=== PATIENT | female | born 1940 | race Caucasian/White ===

== ENCOUNTER 2017-10-13 15:58 | Inpatient (IN) ==
[2017-10-13] MEDS ORDERED: NS 1,000 ML IV ONE ×2 (16:08→18:48)
--- OUTSIDE RECORDS SUMMARY | 2017-10-13 16:18 | External Medical Summary ---
:1940 Author Organization [facility] Address [address] [place] [address] Care Team Providers Name Role Phone Pippa Rojo Unavailable Unavailable PROBLEMS Type Condition ICD9-CM [id number] Onset Condition SNOMED Code Code Code Dates Status Problem CVA (cerebral I63.9 Active 769729417 vascular accident) Problem Anemia D64.9 Active 716145030 Problem Mixed hyperlipidemia E78.2 Active 779141718 Problem CKD (chronic kidney N18.9 Active 713910374 disease) Problem Chronic Z79.01 Active 882370008 anticoagulation Problem AAA (abdominal I71.4 Active 662038175 aortic aneurysm) Problem HTN (hypertension) I10 Active 93687498 Problem Dyslipidemia E78.5 Active [id number] ALLERGIES Substance Reaction Event Type Date Status Tetracycline HCl Unknown Drug Allergy July, Active ENCOUNTERS Encounter Location Date Diagnosis [address] July, AAA (abdominal aortic Cardiology[address] aneurysm) I71.4 ; CVA [address] (cerebral vascular accident) I63.9 ; HTN (hypertension) I10 ; Chronic anticoagulation Z79.01 ; Anemia D64.9 ; Mixed hyperlipidemia E78.2 ; Current tobacco use Z72.0 and CKD (chronic kidney disease) N18.[address] July, AAA (abdominal aortic Cardiology[address] aneurysm) I71.4 ; CVA [address] (cerebral vascular accident) I63.9 ; HTN (hypertension) I10 ; Dyslipidemia E78.5 ; Chronic anticoagulation Z79.01 ; Anemia D64.9 and Tobacco abuse Z72.[address] July, AAA (abdominal aortic Cardiology[address] aneurysm) I71.4 ; CVA [address] (cerebral vascular accident) I63.9 ; HTN (hypertension) I10 ; Dyslipidemia E78.5 ; Chronic anticoagulation Z79.01 ; Anemia D64.9 and Tobacco abuse Z72.0 [facility] [address] [facility] 02 Jul, 2016 AAA (abdominal aortic Cardiology-[address] aneurysm) I71.4 ; CVA [address] (cerebral vascular accident) I63.9 ; HTN (hypertension) I10 ; Dyslipidemia E78.5 ; Chronic anticoagulation Z79.01 ; Anemia D64.9 and Tobacco abuse Z72.0 IMMUNIZATIONS No Known Immunizations SOCIAL HISTORY Never Assessed REASON FOR VISIT ^S ECHO AAA FU 1 WK PLAN OF CARE Activity Details Follow Up 6 Months withAAAA ultrasound Reason: VITAL SIGNS Height 60 in in 2016-08-11 Weight 121 lbs 2016-08-11 BMI 23.63 kg/m2 2016-08-11 Oximetry 97 % 2016-08-11 Heart Rate 51 /min 2016-08-11 Blood pressure systolic 152 mm Hg 2016-08-11 Blood pressure diastolic 80 mm Hg 2016-08-11 MEDICATIONS Medication Instructions Dosage Frequency Start End Duration Status Date Date Vitamin D3 Adult Orally Once a 1 tablet 24h Active Gummies 1000 day UNIT Probiotic - Active Loratadine 10 MG Orally Once a 1 tablet 24h Active day Calcitriol 0.25 Orally every 1 capsule Active MCG Sunday, & Sunday Folic Acid 1 MG Orally Once a 1 tablet 24h Active day Amlodipine Orally Once a 1 tablet 24h Active Besylate 10 MG day Rosuvastatin Orally Once a 1 tablet 24h Active Calcium 20 MG day Ferrous Sulfate Orally Once a 1 tablet 24h Active 325 (65 Fe) MG day Warfarin Sodium Orally Once a 2 tablet 24h Active 1 MG day Metoprolol Orally Twice a 1 tablet 12h Active Tartrate 25 MG day with food Citalopram Orally Once a 0.5 tablet 24h Active Hydrobromide 40 day MG RESULTS No Results PROCEDURES No Known procedures INSTRUCTIONS MEDICATIONS ADMINISTERED No Known Medications MEDICAL (GENERAL) HISTORY Type Description Date Medical History AAA Medical History Hyperlipidemia Medical History CVA august 2014 Medical History HTN Surgical History Breast biopsy
--- NOTE | 2017-10-13 17:53 | Emergency Department Report ---
General Adult HPI - General Chief complaint: Medical Emergency <Francis Khoury - 10/13/17 20:40> Stated complaint: not feeling well <Francis Khoury - 10/13/17 20:40> Time Seen by Provider: 10/13/17 16:08 <Francis Khoury - 10/13/17 20:40> - History of Present Illness HPI narrative: 77-year-old female brought in for failure to thrive, decreased by mouth intake and generalized weakness. Her only interest is any eating [employer], and refuses to eat or drink anything else. She's had some mild nausea, no vomiting. She originally fell about 2 weeks ago and then fell again within the last few days, tripping over an end table by her bed. Her son is concerned that she has not been willing to walk the last few days due to weakness. She received an aortic stent within the last month. No recent fever or chills, no other recent illness. She is a history of atrial fibrillation and is currently on Coumadin. <Booker Portre E - 10/13/17 18:05> - Related Data Home Medications Medication Instructions Recorded Confirmed Amlodipine [Norvasc] 5 mg PO DAILY 10/13/17 10/13/17 Calcitriol [Rocaltrol] 0.25 mcg PO TUTHSA 10/13/17 10/13/17 Cholecalciferol (Vitamin D3) 5,000 unit PO DAILY 10/13/17 10/13/17 [Vitamin D3] Citalopram [Celexa] 40 mg PO DAILY 10/13/17 10/13/17 Clopidogrel [Plavix] 75 mg PO DAILY 10/13/17 10/13/17 Folic Acid [Folate] 1 mg PO DAILY 10/13/17 10/13/17 LORazepam [Ativan] 0.5 mg PO Q8H PRN 10/13/17 10/13/17 Lactobacillus Acidophilus 1 cap PO PM 10/13/17 10/13/17 [Probiotic] Metoprolol Tartrate [Lopressor] 25 mg PO BIDWM 10/13/17 10/13/17 Rosuvastatin [Crestor] 20 mg PO HS 10/13/17 10/13/17 Sodium Bicarbonate [Sodium 650 mg PO BID 07/21/18 07/21/18 Bicarbonate] Spironolactone [Aldactone] 25 mg PO DAILY 10/13/17 10/13/17 Tiotropium Br/Olodaterol HCl 2 puff INH DAILY 10/13/17 10/13/17 [Stiolto Respimat Inhal [place]] Warfarin [Coumadin] 1 mg PO TUSA 10/13/17 10/13/17 Warfarin [Coumadin] 1.5 mg PO SUMOWETHFR 10/13/17 10/13/17 <Francis Khoury - 10/13/17 20:40> Allergies Allergy/AdvReac Type Severity Reaction Status Date / Time tetracycline Allergy Intermediate HIVES Verified 10/13/17 16:17 atorvastatin Allergy Unknown leg cramps Verified 10/13/17 16:17 <Francis Khoury 10/13/17 20:40> Review of Systems All systems: reviewed and negative except as stated <Booker Porter 18:05> [facility] Patient Stated Medical History Cerebrovascular Accident Yes: 2014 Cardiac Arrhythmia Yes Hypertension Yes Other Yes: LEFT KIDNEY BLOCKED Depression Yes Clinic Medical History (Last Reviewed 10/13/17 @ 18:58 by ENRICO Hernandez) Anemia (Acute Medical) Lichen sclerosus et atrophicus (Acute Medical) Urinary incontinence (Acute Medical) Tobacco abuse (Chronic Medical) Aortic aneurysm (Chronic Medical) Chronic kidney disease (Chronic Medical) Stroke (Chronic Medical) Depression (Chronic Medical) GERD (gastroesophageal reflux disease) (Chronic Medical) Hypercholesterolemia (Chronic Medical) Hypertension (Chronic Medical) Atrial fibrillation (Chronic Medical) <Francis Khoury 10/13/17 20:40> Surgical History: Rt Breast biopsy - negative. Bladder sling. Presence of dialysis fistula in left forearm. Colonoscopy, 2009. Rt carpal tunnel. Rt trigger thumb release <Booker Porter 10/13/17 18:05> Family History: Family History (Last Updated 10/13/17 @ 18:54 by ENRICO Hernandez) Mother CHF (congestive heart failure) Heart attack Stroke Father Diverticulitis Suicide Sister Ovarian cancer Heart attack Stroke <Francis Khoury 10/13/17 20:40> - Social History Smoking status: Current every day smoker <Booker Porter 10/13/17 18:05> Substance use type: does not use <Booker Porter 18 18:05> Alcohol intake frequency: holidays/special occasions only <Booker Porter 18:05> Household members: spouse <Booker Porter 10/13/17 18:05> Current occupational status: retired <Booker Porter 10/13/17 18:05> Physical Exam - Limitations Limitations: no limitations <Booker Porter 10/13/17 18:05> - General General appearance: alert <Booker Porter 10/13/17 18:05> - Normal Exams: Neurological:: Patient is alert, and oriented, cranial nerves, motor/sensory/ cerebellar, exams w/o gross deficits, to observation <Booker Porter 18:05> - Head Head exam: other (bruising noted right side of face.) <Booker Porter 18:05> - Eye Eye exam: Present: PERRL, EOMI <Booker Porter 10/13/17 18:05> - Respiratory Respiratory exam: Present: normal lung sounds bilaterally. Absent: respiratory distress <Booker Porter 10/13/17 18:05> - Cardiovascular Cardiovascular exam: Present: regular rate, irregular rhythm <Booker Porter 10/13/17 18:05> - Abdominal Exam Abdominal exam: Present: soft, normal bowel sounds. Absent: distention, tenderness, guarding, rebound, rigidity <Booker Porter 10/13/17 18:05> - Rectal Exam Rectal exam: Present: normal rectal tone, heme (-) stool <Booker Porter 18:05> - Extremities Exam Extremities exam: Present: other (bruising lower thoracic back as well as right hip and buttock) <Booker Porter 10/13/17 18:05> Course Vital Signs Temperature 98.6 F 10/13/17 15:53 Pulse Rate 108 H 10/13/17 15:53 Respiratory Rate 20 10/13/17 15:53 Blood Pressure 108/65 10/13/17 15:53 Pulse Oximetry 98 10/13/17 15:53 Temperature 98.6 F 10/13/17 15:53 Pulse Rate 118 H 10/13/17 19:23 Respiratory Rate 18 10/13/17 19:23 Blood Pressure 110/57 10/13/17 19:23 Pulse Oximetry 99 10/13/17 19:23 <IraidaFrancis - 10/13/17 20:40> Medical Decision Making - [facility] Narrative Medical decision making narrative: Patient continues to be tachycardic in the low 100s after 1 L normal saline. She is in atrial fibrillation, but seems to be responding to IV fluids. Blood pressure is low normal, therefore we will continue one additional bolus of IV fluids. Initial EKG shows atrial fibrillation with a normal ventricular rate in the 90s , patient does have [address] depression in V3 through V6, with mild inversion of T waves. This appears to be changed from prior EKGs 2-3 months ago. Troponin is added to the patient's orders INR came back after recheck still greater than 10. Patient's urine shows obvious UTI. After discussion with hospitalist team, patient is given 5 mg of vitamin K liquid orally, and Rocephin [address] head - n CT A/P - shows abdominal aortic stent observed, patency cannot be evaluated secondary to lack of contrast. No definitive evidence of any large acute hemorrhage surrounding the stent, induration measures approximately 5.8 cm. No other significant abnormalities are found. Troponin - negative <Francis Khoury - 10/13/17 20:40> Peripheral IV placed on initial evaluation and total of 1 L normal saline ordered. Labs and EKG ordered. INR was added. She was placed on telemetry. Chest x-ray return negative. CBC shows hemoglobin of 6.8, CMP shows creatinine 2.6 with BUN of greater than 50. Potassium is 5.0. Telemetry shows atrial fibrillation, EKG is pending. UA is still pending as well. Spoke with hospitalist in regards to significant dehydration as well as anemia as cause to her weakness. Patient be admitted observation for packed RBC transfusion. <Booker Porter - 10/13/17 18:05> - Differential Diagnosis dehydration, UTI, anemia, failure to thrive <Booker Porter - 10/13/17 18:05> - Medical Records Medical records reviewed: Yes: I reviewed the patient's medical records. <Booker Porter - 10/13/17 18:05> - Lab Data Result diagrams: 10/13/17 16:38 10/13/17 16:38 <KhouryFrancis doe H - 10/13/17 20:40> Lab Results 10/13/17 10/13/17 10/13/17 Range/Units 16:36 16:36 16:38 WBC 7.8 (4.5-11.0) T/MM3 RBC 1.73 L (4.00-5.20) M/MM3 Hgb 6.3 L (12-16) GM/DL Hct 19.5 L (36-46) % MCV 112.7 H (80-100) UM3 MCH 36.4 H (26-34) UUG MCHC 32.3 (31-37) GM/DL RDW Std Deviation 75.2 H (36.9-50.2) FL Plt Count 257 (130-400) T/MM3 MPV 9.7 (9.4-12.4) UM3 Immature Gran % (Auto) 0.4 (0.0-0.5) % Neut % (Auto) 74.0 H (33-66) % Lymph % (Auto) 13.8 L (23-45) % [place] % (Auto) 10.2 H (0-9.0) % Eos % (Auto) 1.3 (0-4) % Baso % (Auto) 0.3 (0-2) % Neut # (Auto) 5.8 (1.8-7.7) T/MM3 Lymph # (Auto) 1.1 (1-4.8) T/MM3 [place] # (Auto) 0.8 (0-0.8) T/MM3 Eos # (Auto) 0.1 (0-0.5) T/MM3 Baso # (Auto) 0.0 (0-0.2) T/MM3 Abs Immat Gran (auto) 0.03 (0.00-0.03) T/MM3 INR > 10.00 H* (0.92-1.18) Turbidity (0-20) Sodium (136-146) MEQ/L Potassium (3.6-5) MEQ/L Chloride (98-107) MEQ/L Carbon Dioxide (22-30) MEQ/L Anion Gap (5-15) meq/L BUN (7-17) MG/DL Creatinine (0.7-1.2) mg/dL GFR Calculation BUN/Creatinine Ratio (6-26) RATIO Glucose (65-110) MG/DL Calculated Osmolality (261-280) MOSM/KG Calcium (8.4-10.2) MG/DL Total Bilirubin (0.20-1.30) MG/DL Icterus Index (0-7) AST (14-36) U/L ALT (1-35) U/L Alkaline Phosphatase (38-126) U/L Troponin I < 0.012 (0-0.12) ng/ml Total Protein (6.3-8.2) g/dL Albumin (3.5-5.0) g/dL Globulin (2.4-3.6) G/DL Albumin/Globulin Ratio (1.1-2.2) RATIO Specimen Hemolysis 20 (0-25) Ur Collection Type Urine Color (YELLOW) Urine Clarity Urine pH (5.0-8.0) Ur Specific [place] (1.015-1.025) Urine Protein (NEGATIVE) Urine Glucose (UA) (NEGATIVE) Urine Ketones (NEGATIVE) Urine Occult Blood (NEGATIVE) Urine Nitrate (NEGATIVE) Urine Bilirubin (NEGATIVE) Urine Urobilinogen (NORMAL) EU/DL Ur Leukocyte Esterase (NEGATIVE) Urine RBC (0-3) /HPF Urine WBC (0-5) /HPF Urine WBC Clumps Ur Squamous Epith Cells Urine Bacteria (NEGATIVE) Urine Mucus Ur Culture Indicated? 10/13/17 10/13/17 10/13/17 Range/Units 16:38 17:54 18:23 WBC (4.5-11.0) T/MM3 RBC (4.00-5.20) M/MM3 Hgb (12-16) GM/DL Hct (36-46) % MCV (80-100) UM3 MCH (26-34) UUG MCHC (31-37) GM/DL RDW Std Deviation (36.9-50.2) FL Plt Count (130-400) T/MM3 MPV (9.4-12.4) UM3 Immature Gran % (Auto) (0.0-0.5) % Neut % (Auto) (33-66) % Lymph % (Auto) (23-45) % [place] % (Auto) (0-9.0) % Eos % (Auto) (0-4) % Baso % (Auto) (0-2) % Neut # (Auto) (1.8-7.7) T/MM3 Lymph # (Auto) (1-4.8) T/MM3 [place] # (Auto) (0-0.8) T/MM3 Eos # (Auto) (0-0.5) T/MM3 Baso # (Auto) (0-0.2) T/MM3 Abs Immat Gran (auto) (0.00-0.03) T/MM3 INR > 10.00 H* (0.92-1.18) Turbidity < 20 (0-20) Sodium 135 L (136-146) MEQ/L Potassium 5.0 (3.6-5) MEQ/L Chloride 102 (98-107) MEQ/L Carbon Dioxide 20 L (22-30) MEQ/L Anion Gap 13 (5-15) meq/L BUN 58.0 H* (7-17) MG/DL Creatinine 2.6 H (0.7-1.2) mg/dL GFR Calculation 18 BUN/Creatinine Ratio 22 (6-26) RATIO Glucose 117 H (65-110) MG/DL Calculated Osmolality 277 (261-280) MOSM/KG Calcium 9.5 (8.4-10.2) MG/DL Total Bilirubin 0.60 (0.20-1.30) MG/DL Icterus Index < 2 (0-7) AST 25 (14-36) U/L ALT 10 (1-35) U/L Alkaline Phosphatase 55 (38-126) U/L Troponin I (0-0.12) ng/ml Total Protein 6.6 (6.3-8.2) g/dL Albumin 4.1 (3.5-5.0) g/dL Globulin 2.5 (2.4-3.6) G/DL Albumin/Globulin Ratio 1.6 (1.1-2.2) RATIO Specimen Hemolysis 24 (0-25) Ur Collection Type Urine, void-cc/notcc Urine Color Yellow (YELLOW) Urine Clarity Cloudy Urine pH 6.0 (5.0-8.0) Ur Specific [place] 1.010 L (1.015-1.025) Urine Protein Trace A (NEGATIVE) Urine Glucose (UA) Negative (NEGATIVE) Urine Ketones Negative (NEGATIVE) Urine Occult Blood 3+ A (NEGATIVE) Urine Nitrate Positive A (NEGATIVE) Urine Bilirubin Negative (NEGATIVE) Urine Urobilinogen 0.2 (NORMAL) EU/DL Ur Leukocyte Esterase 2+ A (NEGATIVE) Urine RBC 20-30 H (0-3) /HPF Urine WBC 30-50 H (0-5) /HPF Urine WBC Clumps Few Ur Squamous Epith Cells 5-10 Urine Bacteria 4+ H (NEGATIVE) Urine Mucus Present Ur Culture Indicated? Cult reflexed &setup <Francis Khoury 10/13/17 20:40> - Radiology Data Radiology results reviewed: Yes: I reviewed the patient's radiology results. < Booker Porter 10/13/17 18:05> Disposition Clinical Impression: Prothrombin time increased due to coumadin Anemia Qualifiers: Anemia type: unspecified type Qualified Code(s): D64.9 - Anemia, unspecified UTI (urinary tract infection) Qualifiers: Urinary tract infection type: acute cystitis Hematuria presence: without hematuria Qualified Code(s): N30.00 - Acute cystitis without hematuria <Francis Khoury 10/13/17 20:40> Disposition: 02 To [facility] Acute Care <Francis Khoury 10/13/17 20:40> Condition: Stable <Francis Khoury 10/13/17 20:40> Instructions: <Francis Khoury 10/13/17 20:40> Prescriptions: No Action Warfarin [Coumadin] 1.5 mg PO SUMOWETHFR Tiotropium Br/Olodaterol HCl [Stiolto Respimat Inhal [place]] 2 puff INH DAILY Spironolactone [Aldactone] 25 mg PO DAILY Sodium Bicarbonate [Sodium Bicarbonate] 650 mg PO BID Rosuvastatin [Crestor] 20 mg PO HS Lactobacillus Acidophilus [Probiotic] 1 cap PO PM Calcitriol [Rocaltrol] 0.25 mcg PO TUTHSA Metoprolol Tartrate [Lopressor] 25 mg PO BIDWM LORazepam [Ativan] 0.5 mg PO Q8H PRN PRN Reason: Anxiety Folic Acid [Folate] 1 mg PO DAILY Citalopram [Celexa] 40 mg PO DAILY Amlodipine [Norvasc] 5 mg PO DAILY Warfarin [Coumadin] 1 mg PO TUSA Cholecalciferol (Vitamin D3) [Vitamin D3] 5,000 unit PO DAILY Clopidogrel [Plavix] 75 mg PO DAILY <Francis Khoury - 10/13/17 20:40> Referrals: Hermes Kothari [Primary Care Provider] - <Francis Khoury - 20:40> Forms: <Francis Khoury - 10/13/17 20:40> - Seen By: physician <Francis Khoury 10/13/17 20:40>
[2017-10-13] MEDS ORDERED: PHYTONADIONE 5 MG/2.5 ML ORAL LIQUID PO ONE (18:45)
[2017-10-13] MEDS: SALINE FLUSH 10ml SYRINGE IVF PRN ×2 (18:53→22:41)
[2017-10-13] MEDS ORDERED: CEFTRIAXONE (ER USE ONLY) 1 GM in NS 100 ML IV ONE (18:53)
[2017-10-13] MEDS ORDERED: ONDANSETRON 4 MG/2 ML INJECTION IVP ONE (20:06)
--- NOTE | 2017-10-13 21:48 | History & Physical Report ---
History of Present Illness Date: 10/13/17 Chief complaint: weakness, falls HPI: Mrs. Rivas is a 77-year-old female who underwent endovascular repair of a 6 cm abdominal aortic aneurysm by Dr. Benedict Olmstead on September 27 that [facility]. She was able to ambulate at discharge using a walker but has had progressive decline since she's been home with increasing weakness and at least 2 and possibly 3 falls. Patient reports that she falls getting out of bed. First fall was approximately 2 weeks ago and she injured her left elbow; she fell again personally 2 days ago tripping over an end table by her bed resulting in extensive facial bruising. Oral intake has been poor per history of her son when she was in the emergency room and she has been unable to ambulate independently for at least a week. Patient describes dizziness/vertigo if she tries to sit forward and reports that she has been in bed for most of the past week. Patient denies focal neurological deficits and clearly indicates generalized weakness. She denies blood loss or abdominal pain although she has been nauseated without emesis. She's been constipated and is not aware of any rectal bleeding. In the emergency room she was found to have a hemoglobin of 6.3 , INR > 10, and persistent tachycardia after fluids. CTs of the head and abdomen /pelvis were without acute pathology. Patient is admitted now for management of symptomatic anemia and coagulopathy. Review of Systems All systems PM: 10-point ROS was reviewed, no additional remarkable complaints except (nausea without reflux or emesis; constipation, headaches, difficulty sleeping, and anorexia with son reporting that patient will only eat Braum shakes currently during ER assessment. Remainder of ROS is negative or as per history of present illness.) Past Medical History Medical History: Medical History (Last Updated 10/13/17 @ 21:56 by Nikki Willson MD) Anemia (Acute) Lichen sclerosus et atrophicus (Acute) Urinary incontinence (Acute) Tobacco abuse (Chronic) Stroke (Chronic) Depression (Chronic) GERD (gastroesophageal reflux disease) (Chronic) Hypercholesterolemia (Chronic) Hypertension (Chronic) Atrial fibrillation (Chronic) Aortic aneurysm, abdominal Endovascular stent placed 09/27/17; Dr. Benedict Olmstead CVA (cerebral vascular accident) Right thalamus and left posterior frontal periventricular infarcts August 2014 Chronic renal failure, stage 4 (severe) AV fistula left upper extremity; managed by Dr. Moussa PFO (patent foramen ovale) Surgical History: Rt Breast biopsy - negative. Bladder sling. Presence of dialysis fistula in left forearm. Colonoscopy, 2009. Rt carpal tunnel. Rt trigger thumb release. Endovascular stent-aortic aneurysm 09/27/17, Dr. Benedict Olmstead. Family History: Family History (Last Updated 10/13/17 @ 18:54 by ENRICO Hernandez) Mother CHF (congestive heart failure) Heart attack Stroke Father Diverticulitis Suicide Sister Ovarian cancer Heart attack Stroke Family History: As Above - Social History Smoking status: Current every day smoker Substance use type: does not use Alcohol intake frequency: former alcohol drinker (no alcohol for at least one month) Household members: spouse Social history: PCP-Dr. Hermes Kothari Nephrology-Dr. Boston Headley Vascular surgery-Dr. Benedict Olmstead DPOA-, possibly showed with sons CODE STATUS-DO NOT RESUSCITATE Medications Home Medications Medication Instructions Recorded Confirmed Type Amlodipine [Norvasc] 5 mg PO DAILY 10/13/17 10/13/17 History Calcitriol [Rocaltrol] 0.25 mcg PO TUTHSA 10/13/17 10/13/17 History Cholecalciferol (Vitamin D3) 5,000 unit PO DAILY 10/13/17 10/13/17 History [Vitamin D3] Citalopram [Celexa] 40 mg PO DAILY 10/13/17 10/13/17 History Clopidogrel [Plavix] 75 mg PO DAILY 10/13/17 10/13/17 History Folic Acid [Folate] 1 mg PO DAILY 10/13/17 10/13/17 History LORazepam [Ativan] 0.5 mg PO Q8H PRN 10/13/17 10/13/17 History Lactobacillus Acidophilus 1 cap PO PM 10/13/17 10/13/17 History [Probiotic] Metoprolol Tartrate [Lopressor] 25 mg PO BIDWM 10/13/17 10/13/17 History Rosuvastatin [Crestor] 20 mg PO HS 10/13/17 10/13/17 History Sodium Bicarbonate [Sodium 650 mg PO BID 10/13/17 10/13/17 History Bicarbonate] Spironolactone [Aldactone] 25 mg PO DAILY 10/13/17 10/13/17 History Tiotropium Br/Olodaterol HCl 2 puff INH DAILY 10/13/17 10/13/17 History [Stiolto Respimat Inhal [place]] Warfarin [Coumadin] 1 mg PO TUSA 10/13/17 10/13/17 History Warfarin [Coumadin] 1.5 mg PO SUMOWETHFR 10/13/17 10/13/17 History Allergies Allergy/AdvReac Type Severity Reaction Status Date / Time tetracycline Allergy Intermediate HIVES Verified 10/13/17 16:17 atorvastatin Allergy Unknown leg cramps Verified 10/13/17 16:17 Exam Vital Signs: Temperature 97.5 F 10/13/17 21:14 Pulse Rate 122 H 10/13/17 21:14 Respiratory Rate 18 10/13/17 21:14 Blood Pressure 112/65 10/13/17 21:14 Pulse Oximetry 96 10/13/17 21:14 General-Elderly female, hoarse voice, oriented 3 Extensive facial bruising over the right side of her face and neck, right periorbital edema; 2 small hematomas in the right forehead. Bruising in various stages but no open wounds appreciate HEENT-PERRL, EOMI without nystagmus, conjugate gaze, conjunctiva clear, sclera anicteric, facial structures symmetric, oropharynx clear, neck supple and without adenopathy Lungs-respirations nonlabored, diminished airflow, anterior breath sounds clear Cardiac-irregular rhythm, S1-S2, low-grade tachycardia. Abd-soft, nontender, bowel sounds present, no organomegaly palpable. Ext-without edema; bruit/thrill present left upper extremity at site of right AV fistula; no bruit over left femoral vessels Skin-facial bruising as noted above, scattered bruises on the arms, a large bruises present on the left calf laterally and smaller bruises are present on the right richardson/. Significant bruising present medial right thigh. Neuro-cranial nerves grossly intact, motor tone within normal limits, power symmetric distal strength good, no drift upper extremities. No tremors, sensation intact to light touch 4 extremities. Ambulation was not attempted and patient became lightheaded raising her head approximately 40 off the bed Psych-calm, cooperative Telemetry Rhythm: A-fib with RVR Height/Weight/BMI: Height 1.52 m Weight 53.5 kg Body Mass Index 23.0 Results - Labs CBC & Chem 7: 10/13/17 16:38 10/13/17 16:38 Labs: Repeat hemoglobin following initial hydration in the ER-4.9; MCV 112.7 INR>10 Liver enzymes unremarkable UA with +3 occult blood, positive nitrite, +2 leukocyte Estrace, 30-50 WBCs, +4 bacteria Microbiology Results: Microbiology 10/13/17 17:54 Urine, Voided (Cc/notcc) Urine Culture - Preliminary Culture Initiated - Results Pending - Imaging and Cardiology Chest x-ray Status: image reviewed by me (NAD) CT scan - abdomen Status: image reviewed by me (no intra-abdominal hematoma/acute hemorrhage surrounding stent; approximate 6 cm aortic aneurysm with endovascular stent extending from above renal arteries to bilateral ileacs) CT scan - head Status: image reviewed by me (no evidence of intracranial bleeding/subdural hematomas; moderate atrophy.) Assessment and Plan (1) Symptomatic anemia Current visit: Yes Status: Acute (2) Prothrombin time increased due to coumadin Current visit: Yes Status: Acute Assessment and Plan: Impression: Symptomatic/severe anemia, macrocytic Coagulopathy due to warfarin Generalized weakness Ambulatory dysfunction with falls Lightheadedness UTI Anorexia Nausea Atrial fibrillation with RVR CKD, stage IV AAA, recent endovascular stent GERD History CVA Plan: Mrs. Rivas is admitted with combination of severe symptomatic anemia, falls with extensive bruising, and INR greater than 10. Vitamin K was given in the emergency room and warfarin will be held. INR will be reassessed following the first unit of packed red blood cells. Patient has been typed and crossed for 2 units of blood but additional blood will be cross matched after repeat hemoglobin was found to be 4.9. 2 units of packed cells will be transfused overnight; anticipate transfusion to hemoglobin between 7 and 8 provided INR stabilizes. With recent endovascular stent Plavix will need to be continued. Iron studies and B-12 are being obtained tonight prior to transfusion. By history no blood loss reported beyond recent surgical blood loss and suspected anemia of chronic disease due to underlying renal failure. Last hemoglobin available in the [facility] system was 12.3 in January 2016. More recent data being obtained from [facility]. Hemoccults unlikely to be helpful at present as almost certainly will be positive with INR as high as it is. PPI initiated empirically with Protonix. Continue metoprolol provided systolic blood pressure permits; continue Plavix due to stent. Majority of home medications on hold. Dietary consult planned, nutritional supplements initiated. PT/OT consults after Hbg/INR stable. DO NOT RESUSCITATE confirmed with patient; case discussed with Dr. Porter and Dr. Khoury. Old records reviewed. DVT Prophylaxis: SCD's Resuscitation Status: Do Not Resuscitate - Physician Narrative Narrative: Date: 10/13/17 Time: 2140 Hospital Course Summary Disclaimer: The visit summary below is not to be considered part of the above Progress Note. Hospital Course: 10/13/17 Mrs. Rivas is admitted with combination of severe symptomatic anemia, falls with extensive bruising, and INR greater than 10. Vitamin K was given in the emergency room and warfarin will be held. INR will be reassessed following the first unit of packed red blood cells. Patient has been typed and crossed for 2 units of blood but additional blood will be cross matched after repeat hemoglobin was found to be 4.9. 2 units of packed cells will be transfused overnight; anticipate transfusion to hemoglobin between 7 and 8 provided INR stabilizes. With recent endovascular stent Plavix will need to be continued. Iron studies and B-12 are being obtained tonight prior to transfusion. By history no blood loss reported beyond recent surgical blood loss and suspected anemia of chronic disease due to underlying renal failure. Last hemoglobin available in the [facility] system was 12.3 in January 2016. More recent data being obtained from [facility]. Hemoccults unlikely to be helpful at present as almost certainly will be positive with INR as high as it is. PPI initiated empirically with Protonix. Continue metoprolol provided systolic blood pressure permits; continue Plavix due to stent. Majority of home medications on hold. Dietary consult planned, nutritional supplements initiated. PT/OT consults after Hbg/INR stable.
[2017-10-13] MEDS ORDERED: ONDANSETRON 4 MG/2 ML INJECTION IVP PRN (22:10)
[2017-10-13] MEDS ORDERED: LORazepam 0.5 MG TABLET PO PRN (22:14)
[2017-10-13] MEDS ORDERED: CALCITRIOL 0.25 MCG CAPSULE PO SCH (22:15)
[2017-10-13] MEDS ORDERED: PANTOPRAZOLE 40 MG INJECTION IVP ONE (22:19)
[2017-10-13] MEDS: NS FLUSH BAG 500ml IV PRN (22:47)
[2017-10-14] MEDS: PANTOPRAZOLE 40 MG TABLET PO SCH (07:23)
[2017-10-14] MEDS: ALBUTEROL/IPRATROPIUM 2.5mg-0.5mg/3ml NEB AEROSOL SCH ×4 (08:36→19:30)
[2017-10-14] MEDS: SENNA + DOCUSATE TABLET PO SCH ×2 (08:54→21:21)
[2017-10-14] MEDS: FOLIC ACID 1 MG TABLET PO SCH (08:54)
[2017-10-14] MEDS: CLOPIDOGREL 75 MG TABLET PO SCH (08:54)
[2017-10-14] MEDS: SODIUM BICARBONATE 650 MG TABLET PO SCH ×2 (08:54→21:11)
[2017-10-14] MEDS: POLYETHYL GLYCOL 3350 17gm PACKET PO SCH (08:55)
[2017-10-14] MEDS ORDERED: NON-FORMULARY MEDICATION 1 EACH EACH (Tiotropium Br/Olodaterol Hcl [Stiolto Respimat Inhal INH SCH (09:00)
[2017-10-14] MEDS ORDERED: PHYTONADIONE 5 MG/2.5 ML ORAL LIQUID PO ONE (09:11)
--- NOTE | 2017-10-14 10:27 | CT Scan Report ---
Indication: ANEMIA/SP AORTIC STENT PLACEMENT PROCEDURE: CT abdomen pelvis wo con: Encounter: Initial Comparison: None Technique: Axial CT images were performed through the abdomen and pelvis without intravenous contrast. Coronal and sagittal two-dimensional reformats. Automated Exposure Control and Iterative Reconstruction dose reducing techniques were utilized. Findings: The lung bases are clear apart from minimal atelectasis or scarring on the left. The unenhanced contours of the liver grossly normal. Gallbladder is mildly distended. Endovascular aortic aneurysm repair, poorly evaluated without contrast. Aneurysm sac diameter measures 5.8 cm. The spleen, pancreas and right adrenal gland are within normal limits. Indeterminant 2.2 cm left adrenal lesion measuring 15 Hounsfield units in density. Superior pole left renal cyst. No free fluid or hemorrhage seen in the abdomen. Bladder is normal. No evidence of a bowel obstruction. The appendix is normal. Bone windows show degenerative change and scoliosis in the spine. Probable postprocedural changes in the inguinal areas with induration in the fat. Impression: 1. No acute disease process seen in the abdomen or pelvis. 2. Indeterminate left adrenal nodule. Follow-up adrenal protocol CT or MRI could be performed. There is a preliminary report by [employer]. .
--- NOTE | 2017-10-14 10:28 | CT Scan Report ---
Indication: FALL, elevated inr PROCEDURE: CT head/brain wo con: Encounter: Initial Comparison: April 29, 2015 Technique: Axial CT images through the head were performed without contrast. Iterative Reconstruction dose reducing technique was utilized. FINDINGS: Moderate atrophy. Old right frontal and temporal lobe infarcts with encephalomalacia. The ventricles are of normal size, shape, and configuration for the patient's age. There is no evidence of acute intracranial hemorrhage, midline displacement, or mass effect. There are scattered areas of low attenuation in the white matter which most likely represent changes of chronic microvascular ischemia. The CT attenuation of the brain parenchyma is otherwise normal within the cerebellum, brain stem, and cerebral hemispheres. The tympanic cavities and mastoid air cells are free of appreciable disease. There are no definite fractures of the skull base, calvarium, or visualized portion of the midface. Right frontal scalp hematoma. IMPRESSION: No CT evidence of acute traumatic intracranial injury. There is a preliminary report by [employer] radiologic. .
--- NOTE | 2017-10-14 10:30 | Progress Note ---
- Date 10/14/17 Subjective: Lynn was still resting in bed; she was drowsy but participated in conversation. She denied having a headache and she denied pain anywhere. She denied feeling short of breath. She hasn't yet been out of bed this am to assess for weakness/dizziness but she hasn't noticed these sx while at rest. She denied abd pain or GI upset but doesn't have much of an appetite and only requested toast for breakfast. She noted, however, that she doesn't eat much on a regular basis. Objective Vital signs: Temperature 98.4 F 10/14/17 07:55 Pulse Rate 100 10/14/17 07:55 Respiratory Rate 18 10/14/17 08:38 Blood Pressure 129/78 10/14/17 07:55 Pulse Oximetry 97 10/14/17 08:38 Height/Weight/BMI: Height 1.52 m Weight 53.9 kg Body Mass Index 23.0 - Constitutional Present: no acute distress, well nourished, well developed - Routine HEENT Exam Head: Absent: atraumatic (extensive right sided facial bruising/swelling with mild right periorbital edema) Eye: Absent: conjunctival icterus, scleral injection ENT: Present: mucous membranes moist - Routine Respiratory Exam Present: CTA bilaterally - Routine Cardiovascular Exam Present: irregular rhythm - Routine Abdominal Exam Present: soft, normoactive bowel sounds, non distended, non tender - Routine Extremities Exam Present: no edema - Routine Skin Exam Present: dry, warm, ecchymosis (right thigh/richardson; left calf) - Routine Neurological Exam Present: alert, moving all extremities, normal speech - Routine Psychiatric Exam Present: normal thought process, cooperative Results - Labs CBC & Chem 7: 10/14/17 08:15 10/14/17 03:30 Microbiology Results: Microbiology 10/13/17 17:54 Urine, Voided (Cc/notcc) Urine Culture - Preliminary Culture Initiated - Results Pending Assessment and Plan (1) Symptomatic anemia Current visit: Yes Status: Acute (2) Prothrombin time increased due to coumadin Current visit: Yes Status: Acute Assessment and Plan: Impression: Symptomatic/severe anemia, macrocytic - s/p PRBC x2 units Coagulopathy due to warfarin Generalized weakness Ambulatory dysfunction with falls Lightheadedness UTI Anorexia Nausea Hyponatremia, POA - resolved Atrial fibrillation with RVR CKD, stage IV AAA, recent endovascular stent GERD History CVA Left adrenal nodule, 2.2 [id number] recommended Plan: Hgb improved to 8.6 after being transfused 2 units PRBC. LDH to be added to pre-transfusion labs from yesterday to assess for hemolysis. Iron studies/B12 pending. INR still grossly elevated at 8.03 and additional vitamin K has been ordered. Urine culture pending. Continue Rocephin. WBC normal; afebrile. Hyponatremia resolved, na 137. Renal function showing improvement with cr 2.2. K 4.6. D/W Dr. Willson. GI Prophylaxis: Protonix Resuscitation Status: Do Not Resuscitate - Physician Narrative Physician: Nikki Willson MD Narrative: Date: 10/14/17 Time: 1540 I have independently evaluated and examined this patient. I reviewed the chart, the patient's history, and the DIAPER MACHINE TENDER/PA's documented findings as above. We discussed and formulated the assessment and plan as above with additions as below: Mrs. Rivas was seen with her and son at bedside. Her reports that she was able to walk using her walker enough to leave the hospital following endovascular stent on 09/29 but has been essentially bedridden since that time. When she tried to get out of bed she has fallen. She has not been eating since the stent other than some Dr. Buenrostro and strawberry shakes. Patient reports that she really doesn't have an appetite and feels like food sticks in the upper esophagus. She also notes that her throat is bothered her since her stroke 3 years ago. reports no recognized blood loss or melena while patient was home. Facial bruising unchanged from yesterday, respirations nonlabored, irregular cardiac rhythm S1-S2 Patient able to sit upright at 90 without lightheadedness today. Hemoglobin 8.6 after 2 units packed red blood cells, INR remains elevated at 8.03-additional vitamin K given. Creatinine 2.2-near baseline. reports right renal artery stented, left occluded. PT/OT/speech therapy evaluations in the morning. Continue to monitor hemoglobin/ INR. Seems unlikely that patient can safely discharge home without stay in rehabilitation or [facility] for strengthening. Hospital Course Summary Disclaimer: The visit summary below is not to be considered part of the above Progress Note. Hospital Course: 10/13/17 Mrs. Rivas is admitted with combination of severe symptomatic anemia, falls with extensive bruising, and INR greater than 10. Vitamin K was given in the emergency room and warfarin will be held. INR will be reassessed following the first unit of packed red blood cells. Patient has been typed and crossed for 2 units of blood but additional blood will be cross matched after repeat hemoglobin was found to be 4.9. 2 units of packed cells will be transfused overnight; anticipate transfusion to hemoglobin between 7 and 8 provided INR stabilizes. With recent endovascular stent Plavix will need to be continued. Iron studies and B-12 are being obtained tonight prior to transfusion. By history no blood loss reported beyond recent surgical blood loss and suspected anemia of chronic disease due to underlying renal failure. Last hemoglobin available in the [facility] system was 12.3 in January 2016. More recent data being obtained from [facility]. Hemoccults unlikely to be helpful at present as almost certainly will be positive with INR as high as it is. PPI initiated empirically with Protonix. Continue metoprolol provided systolic blood pressure permits; continue Plavix due to stent. Majority of home medications on hold. Dietary consult planned, nutritional supplements initiated. PT/OT consults after Hbg/INR stable. 10/14/17 Hgb improved to 8.6 after being transfused 2 units PRBC. LDH to be added to pre-transfusion labs from yesterday to assess for hemolysis. Iron studies/B12 pending. INR still grossly elevated at 8.03 and additional vitamin K has been ordered. Urine culture pending. Continue Rocephin. WBC normal; afebrile. Hyponatremia resolved, na 137. Renal function showing improvement with cr 2.2. K 4.6.
--- NOTE | 2017-10-14 10:35 | XRay Report ---
INDICATION: weakness PROCEDURE: CHEST 2-VIEWS UPRIGHT (PA & LAT) Encounter: Initial COMPARISON: September 05, 2014 FINDINGS: Mild hyperinflation and emphysema without focal consolidation. There is no pleural effusion or pneumothorax. The heart size, mediastinal contours and pulmonary vascularity are within normal limits. There is no significant skeletal abnormality. IMPRESSION: No acute cardiopulmonary disease. .
[2017-10-14] MEDS: ACETAMINOPHEN 325 MG TABLET PO PRN ×2 (11:09→23:47)
[2017-10-14] MEDS: SALINE FLUSH 10ml SYRINGE IVF PRN ×2 (12:31→21:21)
[2017-10-14] MEDS: NS FLUSH BAG 500ml IV PRN (17:38)
[2017-10-14] MEDS: CEFTRIAXONE 1 G in NS 100 ML IV SCH (17:46)
[2017-10-14] MEDS: ROSUVASTATIN 20 MG TABLET PO SCH (21:21)
[2017-10-15] MEDS: PANTOPRAZOLE 40 MG TABLET PO SCH (05:44)
[2017-10-15] MEDS: LACTOBACILLUS (15B cfu) CAPSULE PO SCH ×2 (06:30→20:57)
[2017-10-15] MEDS: SODIUM BICARBONATE 650 MG TABLET PO SCH ×2 (08:40→20:58)
[2017-10-15] MEDS: POLYETHYL GLYCOL 3350 17gm PACKET PO SCH (08:40)
[2017-10-15] MEDS: FOLIC ACID 1 MG TABLET PO SCH (08:40)
[2017-10-15] MEDS: CITALOPRAM 40 MG TABLET PO SCH (08:41)
[2017-10-15] MEDS: SENNA + DOCUSATE TABLET PO SCH ×2 (08:41→20:58)
[2017-10-15] MEDS: ACETAMINOPHEN 325 MG TABLET PO PRN (08:41)
[2017-10-15] MEDS: CLOPIDOGREL 75 MG TABLET PO SCH (08:41)
[2017-10-15] MEDS: ALBUTEROL/IPRATROPIUM 2.5mg-0.5mg/3ml NEB AEROSOL SCH ×4 (08:53→20:10)
--- NOTE | 2017-10-15 11:48 | Progress Note ---
- Date 10/15/17 Subjective: As I entered Lynn's room she was standing up and transferring to the bed. She c /o feeling dizzy and weak, especially in her knees. This is the second time she' s been up today, and she felt the same way earlier. She denies any pain. She denies feeling short of breath. No chest discomfort. She denies abdominal pain or nausea but her appetite was poor at breakfast this morning. Objective Vital signs: Temperature 98.7 F 10/15/17 07:18 Pulse Rate 97 10/15/17 08:00 Respiratory Rate 12 10/15/17 08:54 Blood Pressure 115/71 10/15/17 07:20 Pulse Oximetry 96 10/15/17 08:54 Height/Weight/BMI: Height 1.52 m Weight 53.8 kg Body Mass Index 23.0 - Constitutional Present: no acute distress, well nourished, well developed, thin - Routine HEENT Exam Head: Absent: atraumatic (ecchymosis to right side of face/jaw/neck is fading) Eye: Present: PERRL. Absent: conjunctival icterus, scleral injection ENT: Present: oropharynx clear - Routine Respiratory Exam Present: CTA bilaterally - Routine Cardiovascular Exam Present: S1, S2, irregularly irregular - Routine Abdominal Exam Present: soft, normoactive bowel sounds, non distended, non tender - Routine Extremities Exam Present: no edema. Absent: calf tenderness - Routine Musculoskeletal Exam Musculoskeletal: Present: moving extremities well - Routine Skin Exam Present: dry, warm, ecchymosis - Routine Neurological Exam Present: alert, oriented X3, CN II-XII intact, normal speech - Routine Psychiatric Exam Present: normal affect, normal thought process, cooperative Results - Labs CBC & Chem 7: 10/15/17 03:59 10/15/17 03:59 Microbiology Results: Microbiology 10/13/17 17:54 Urine, Voided (Cc/notcc) Urine Culture - Preliminary Gram Negative Angel Gram Negative Angel#2 Assessment and Plan (1) Symptomatic anemia Current visit: Yes Status: Acute (2) Prothrombin time increased due to coumadin Current visit: Yes Status: Acute Assessment and Plan: Impression: Symptomatic/severe anemia, macrocytic - s/p PRBC x2 units Coagulopathy due to warfarin Generalized weakness Ambulatory dysfunction with falls Lightheadedness UTI Anorexia Nausea Hyponatremia, POA - resolved Atrial fibrillation with RVR CKD, stage IV AAA, recent endovascular stent GERD History CVA Left adrenal nodule, 2.2 [id number] recommended Plan: Hgb 8.3, s/p 2 units PRBC. Iron level = 29, B12 491. Start ferrous sulfate. INR down to 1.84 after 2nd dose of Vit K was given yesterday. Will resume Coumadin per pharmacy protocol. Evaluated by PT/OT - recommending inpatient therapy and SNF at [place]. Urine culture showing 2 gram neg rods (both 50-100K cfu/ml). Cont Rocephin. Renal function improving; cr 2.1. DVT Prophylaxis: Coumadin GI Prophylaxis: Protonix Resuscitation Status: Do Not Resuscitate - Physician Narrative Physician: Nikki Willson MD Narrative: Date: 10/15/17 Time: 2224 I have independently evaluated and examined this patient. I reviewed the chart, the patient's history, and the OFFLINE EDITOR/PA's documented findings as above. We discussed and formulated the assessment and plan as above with additions as below: Mrs. Rivas was seen much earlier in the day and indicated that she walked a little bit although not very for. She was drinking Ensure when seen and denied lightheadedness today. PT/OT have recommended discharge to [facility]. NAD, alert, bruising present although slightly less prominent Irregular cardiac rhythm, abdomen soft Urine culture noted INR 1.84-warfarin to be resumed Briefly discussed alternate anticoagulants with the patient who is interested if she is a candidate for NOAC-could potentially use lower dose Eliquis or Xarelto with her renal dysfunction. Hospital Course Summary Disclaimer: The visit summary below is not to be considered part of the above Progress Note. Hospital Course: 10/13/17 Mrs. Rivas is admitted with combination of severe symptomatic anemia, falls with extensive bruising, and INR greater than 10. Vitamin K was given in the emergency room and warfarin will be held. INR will be reassessed following the first unit of packed red blood cells. Patient has been typed and crossed for 2 units of blood but additional blood will be cross matched after repeat hemoglobin was found to be 4.9. 2 units of packed cells will be transfused overnight; anticipate transfusion to hemoglobin between 7 and 8 provided INR stabilizes. With recent endovascular stent Plavix will need to be continued. Iron studies and B-12 are being obtained tonight prior to transfusion. By history no blood loss reported beyond recent surgical blood loss and suspected anemia of chronic disease due to underlying renal failure. Last hemoglobin available in the [facility] system was 12.3 in January 2016. More recent data being obtained from [facility]. Hemoccults unlikely to be helpful at present as almost certainly will be positive with INR as high as it is. PPI initiated empirically with Protonix. Continue metoprolol provided systolic blood pressure permits; continue Plavix due to stent. Majority of home medications on hold. Dietary consult planned, nutritional supplements initiated. PT/OT consults after Hbg/INR stable. 10/14/17 Hgb improved to 8.6 after being transfused 2 units PRBC. LDH to be added to pre-transfusion labs from yesterday to assess for hemolysis. Iron studies/B12 pending. INR still grossly elevated at 8.03 and additional vitamin K has been ordered. Urine culture pending. Continue Rocephin. WBC normal; afebrile. Hyponatremia resolved, na 137. Renal function showing improvement with cr 2.2. K 4.6. 10/15/17 Hgb 8.3, s/p 2 units PRBC. Iron level = 29, B12 491. Start ferrous sulfate. INR down to 1.84 after 2nd dose of Vit K was given yesterday. Will resume Coumadin per pharmacy protocol. Evaluated by PT/OT - recommending inpatient therapy and SNF at [place]. Urine culture showing 2 gram neg rods (both 50-100K cfu/ml). Cont Rocephin. Renal function improving; cr 2.1.
[2017-10-15] MEDS ORDERED: WARFARIN - PHARMACY CONSULT MC ONE (11:56)
--- NOTE | 2017-10-15 14:42 | Pharmacy Consult ---
Pharmacy Consult-Warfarin - Laboratory Information 10/13/17 10/13/17 10/13/17 16:36 16:38 16:38 Hgb 6.3 L Hct 19.5 L INR > 10.00 H* AST 25 ALT 10 Albumin 4.1 10/13/17 10/13/17 10/14/17 18:23 21:25 03:30 Hgb 4.9 L* D 6.7 L D Hct 15.7 L* D 20.8 L D INR > 10.00 H* AST ALT Albumin 10/14/17 10/14/17 10/14/17 03:30 03:30 03:59 Hgb Cancelled Hct INR 8.03 H* AST ALT Albumin 3.4 L 10/14/17 10/15/17 10/15/17 08:15 03:59 03:59 Hgb 8.6 L D 8.3 L Hct 25.7 L D INR 1.84 H AST ALT Albumin - Consult Information COUMADIN CONSULT (Initial): 77 yr old female patient 5'0" 53.8 kg on warfarin for A-Fib Dx: Supratherapeutic INR and UTI and Anemia Patient had an abdominal aortic aneurysm repair earlier this month. The patient is also on Plavix 75 mg daily. She has Chronic Renal Disease Stage 4. Baseline INR = >10 at admit. Had Vit K 5 mg orally on 10/13 and again on 10/14. Her INR is now down to 1.84. She is receiving Rocephin for her UTI. The Rocephin can cause her INR to increase. Her home med dose averages out to 2 mg daily. She takes 1.5 mg 5 days a week and 1 mg 2 days per week. Total of 15 mg weekly. DATE INR DOSE 10/15 1.84 Will Give 3 MG Warfarin Today Pharmacy will continue to monitor the INR and adjust the Warfarin dose as needed. Thank you. Tosha Chávez, PharmD
[2017-10-15] MEDS ORDERED: WARFARIN 3 MG TABLET PO SCH (15:00)
[2017-10-15 17:05] VITALS: BMI 23.1
[2017-10-15] MEDS: CEFTRIAXONE 1 G in NS 100 ML IV SCH (17:18)
[2017-10-15] MEDS: SALINE FLUSH 10ml SYRINGE IVF PRN (17:18)
[2017-10-15] MEDS: ROSUVASTATIN 20 MG TABLET PO SCH (20:57)
[2017-10-16] MEDS: PANTOPRAZOLE 40 MG TABLET PO SCH (06:39)
--- NOTE | 2017-10-16 07:34 | Pharmacy Consult ---
Pharmacy Consult-Warfarin - Laboratory Information 10/13/17 10/13/17 10/13/17 16:36 16:38 16:38 Hgb 6.3 L Hct 19.5 L INR > 10.00 H* AST 25 ALT 10 Albumin 4.1 10/13/17 10/13/17 10/14/17 18:23 21:25 03:30 Hgb 4.9 L* D 6.7 L D Hct 15.7 L* D 20.8 L D INR > 10.00 H* AST ALT Albumin 10/14/17 10/14/17 10/14/17 03:30 03:30 03:59 Hgb Cancelled Hct INR 8.03 H* AST ALT Albumin 3.4 L 10/14/17 10/15/17 10/15/17 08:15 03:59 03:59 Hgb 8.6 L D 8.3 L Hct 25.7 L D INR 1.84 H AST ALT Albumin 10/16/17 10/16/17 03:51 03:51 Hgb 8.8 L Hct 27.1 L INR 1.47 H AST ALT Albumin - Consult Information COUMADIN CONSULT (Recurring): 77 yr old female patient 5'0" 53.8 kg on warfarin for A-Fib Dx: Supratherapeutic INR and UTI Patient had an abdominal aortic aneurysm repair earlier this month. The patient is also on Plavix 75 mg daily. She has Chronic Renal Disease Stage 4. Baseline INR = >10 at admit. Had Vit K 5 mg orally on 10/13 and again on 10/14. Her INR is dropped to 1.84. She is receiving Rocephin for her UTI. The Rocephin can cause her INR to increase. Her home med dose averages out to 2 mg daily. She takes 1.5 mg 5 days a week and 1 mg 2 days per week. Total of 15 mg weekly. DATE INR DOSE 10/15 1.84 3 MG 10/16 1.47 Will give 5 MG Warfarin today The effect of the 10 mg of vitamin K given this past weekend for the high INR at admit is slowly wearing off. Pharmacy will continue to monitor the INR and adjust the Warfarin dose as needed. Thank you. Tosha Chávez, AmyD
[2017-10-16] MEDS: ALBUTEROL/IPRATROPIUM 2.5mg-0.5mg/3ml NEB AEROSOL SCH ×4 (08:07→21:36)
[2017-10-16] MEDS: CALCITRIOL 0.25 MCG CAPSULE PO SCH (08:38)
[2017-10-16] MEDS: SODIUM BICARBONATE 650 MG TABLET PO SCH ×2 (08:38→21:28)
[2017-10-16] MEDS: CITALOPRAM 40 MG TABLET PO SCH (08:38)
[2017-10-16] MEDS: POLYETHYL GLYCOL 3350 17gm PACKET PO SCH (08:38)
[2017-10-16] MEDS: FOLIC ACID 1 MG TABLET PO SCH (08:38)
[2017-10-16] MEDS: SENNA + DOCUSATE TABLET PO SCH ×2 (08:40→21:28)
[2017-10-16] MEDS: FERROUS SULFATE 324 MG TABLET PO SCH (08:40)
[2017-10-16] MEDS: CLOPIDOGREL 75 MG TABLET PO SCH (08:40)
[2017-10-16] MEDS ORDERED: WARFARIN 5 MG TABLET PO SCH (12:00)
--- NOTE | 2017-10-16 14:32 | Progress Note ---
- Date 10/16/17 Subjective: Patient is seen lying in bed this afternoon. She reports that she's not hungry. Her got her a strawberry shake from [employer]. he denies pain. She had a mahmood placed overnight. She reports she didn't want the mahmood and the nurses had to hold her down to put it in; however, the nurses notes state that she had requested the mahmood after trying to void several times unsuccessfully. No CP, SOA, abd pain, diarrhea. She has stated she doesn't want to go to rehab. Objective Vital signs: Temperature 98.1 F 10/16/17 11:31 Pulse Rate 109 H 10/16/17 11:31 Respiratory Rate 16 10/16/17 11:31 Blood Pressure 122/69 10/16/17 11:31 Pulse Oximetry 97 10/16/17 11:31 Height/Weight/BMI: Height 1.52 m Weight 53.5 kg Body Mass Index 23.1 - Constitutional Present: no acute distress, well nourished, well developed - Routine HEENT Exam Head: Present: normocephalic Comments: ecchymosis from R forehead extending down R side of face into the neck. - Routine Respiratory Exam Present: CTA bilaterally. Absent: wheezes - Routine Cardiovascular Exam Present: no murmur, irregular rhythm - Routine Abdominal Exam Present: soft, non distended, non tender - Routine Extremities Exam Present: no edema, normal capillary refill - Routine Skin Exam Present: dry, warm - Routine Neurological Exam Present: alert, moving all extremities, normal speech - Routine Lymphatic Exam Lymphatic: Absent: adenopathy - Routine Psychiatric Exam Present: cooperative, depressed Results - Labs CBC & Chem 7: 10/16/17 03:51 10/16/17 03:51 Microbiology Results: Microbiology 10/13/17 17:54 Urine, Voided (Cc/notcc) Urine Culture - Final Klebsiella oxytoca Enterobacter aerogenes Assessment and Plan Assessment and Plan: Impression: Symptomatic/severe anemia, macrocytic - s/p PRBC x2 units Coagulopathy due to warfarin Generalized weakness Ambulatory dysfunction with falls Lightheadedness UTI - Klebsiella oxytoca and Enterobacter aerogenes Anorexia Nausea Hyponatremia (POA) - resolved Atrial fibrillation with RVR CKD, stage IV AAA, recent endovascular stent GERD History CVA Left adrenal nodule, 2.2 [id number] recommended Iron deficiency Constipation Tobacco dependency Plan: Continue Rocephin for UTI. Day #4. UC Klebsiella oxytoca, Enterobacter aerogenes - both S to ceftriaxone. INR down to 1.47. She had 5 mg vitamin K on 10/14 and 10/15. Will give renal dose Lovenox today. Warfarin per pharm. hotel front office manager is pricing Eliquis and Xarelto as patient would like to switch to NOAC. Will start whichever med is covered. Hgb improving - 8.8. S/p 2U PRBC on 10/13 & 10/14. Continues on ferrous sulfate started 10/16/17. A-fib with RVR the majority of the time. On metoprolol 25mg BID. Observe for now. See if this improves with starting IVF's. Home amlodipine and spironolactone remain on hold. Pt with poor PO intake. Start IVF's NS at 100cc/hr, encourage nutritional supplements. Evaluated by PT/OT - recommending inpatient therapy and SNF at [place]. DVT Prophylaxis: Lovenox, Coumadin Resuscitation Status: Do Not Resuscitate - Time spent with patient Time with patient PN: 25 minutes - Physician Narrative Physician: Jaycob Linder MD Narrative: Date: 10/16/17 Time: 1845 Have independently interviewed & examined pt. Chart reviewed. Case discussed with CM & my PA. Care plan developed with my supervision; agree with above. Doing okay this afternoon. Not hungry. Bowels feel slow-thought was doing to have a movement earlier, but nothing happened. Breathing okay. No chest pain. has been walking with therapy. Feels strength improving. Lungs: decreased, no distress CV: irregularly irregular AB: soft nt MSE: awake alert Plan: Continue with Rocephin for urinary coverage. Encourage continued ambulation. CM checking on prices of novel agents to replace warfarin. Will have MOM and Dulcolax available for constipation. Monitor lab. Hospital Course Summary Disclaimer: The visit summary below is not to be considered part of the above Progress Note. Hospital Course: 10/13/17 Mrs. Rivas is admitted with combination of severe symptomatic anemia, falls with extensive bruising, and INR greater than 10. Vitamin K was given in the emergency room and warfarin will be held. INR will be reassessed following the first unit of packed red blood cells. Patient has been typed and crossed for 2 units of blood but additional blood will be cross matched after repeat hemoglobin was found to be 4.9. 2 units of packed cells will be transfused overnight; anticipate transfusion to hemoglobin between 7 and 8 provided INR stabilizes. With recent endovascular stent Plavix will need to be continued. Iron studies and B-12 are being obtained tonight prior to transfusion. By history no blood loss reported beyond recent surgical blood loss and suspected anemia of chronic disease due to underlying renal failure. Last hemoglobin available in the [facility] system was 12.3 in January 2016. More recent data being obtained from [facility]. Hemoccults unlikely to be helpful at present as almost certainly will be positive with INR as high as it is. PPI initiated empirically with Protonix. Continue metoprolol provided systolic blood pressure permits; continue Plavix due to stent. Majority of home medications on hold. Dietary consult planned, nutritional supplements initiated. PT/OT consults after Hbg/INR stable. 10/14/17 Hgb improved to 8.6 after being transfused 2 units PRBC. LDH to be added to pre-transfusion labs from yesterday to assess for hemolysis. Iron studies/B12 pending. INR still grossly elevated at 8.03 and additional vitamin K has been ordered. Urine culture pending. Continue Rocephin. WBC normal; afebrile. Hyponatremia resolved, na 137. Renal function showing improvement with cr 2.2. K 4.6. 10/15/17 Hgb 8.3, s/p 2 units PRBC. Iron level = 29, B12 491. Start ferrous sulfate. INR down to 1.84 after 2nd dose of Vit K was given yesterday. Will resume Coumadin per pharmacy protocol. Evaluated by PT/OT - recommending inpatient therapy and SNF at [place]. Urine culture showing 2 gram neg rods (both 50-100K cfu/ml). Cont Rocephin. Renal function improving; cr 2.1. 10/16/17 Continue Rocephin for UTI - Day #4. UC Klebsiella oxytoca, enterobacter aerogenes - both Sensitive to ceftriaxone. INR down to 1.47. She had 5 mg vitamin K on 10/14 and 10/15. Will give renal dose Lovenox today. Warfarin per pharm. hotel front office manager is pricing Eliquis and Xarelto as patient would like to switch to NOAC. Will start whichever med is covered. Hgb improving - 8.8. S/p 2U PRBC on 10/13 & 10/14. Continues on ferrous sulfate started 10/16/17. A-fib with RVR the majority of the time. On metoprolol 25mg BID. Observe for now. See if this improves with starting IVF's. Pt with poor PO intake. Start IVF's NS at 100cc/hr, encourage nutritional supplements. Evaluated by PT/OT - recommending inpatient therapy and SNF at [place].
[2017-10-16] MEDS ORDERED: ENOXAPARIN 30 MG/0.3 ML INJECTION SQ ONE (14:38)
[2017-10-16] MEDS: NS 1,000 ML IV SCH (15:10)
[2017-10-16] MEDS: CEFTRIAXONE 1 G in NS 100 ML IV SCH (17:07)
[2017-10-16] MEDS ORDERED: BISACODYL 10 MG SUPPOSITORY RECTALLY PRN (18:50)
[2017-10-16] MEDS: LACTOBACILLUS (15B cfu) CAPSULE PO SCH (21:28)
[2017-10-16] MEDS: ROSUVASTATIN 20 MG TABLET PO SCH (21:28)
[2017-10-17] MEDS: NS 1,000 ML IV SCH ×2 (02:08→13:10)
[2017-10-17] MEDS: PANTOPRAZOLE 40 MG TABLET PO SCH (06:23)
[2017-10-17] MEDS: ALBUTEROL/IPRATROPIUM 2.5mg-0.5mg/3ml NEB AEROSOL SCH ×4 (07:38→19:14)
--- NOTE | 2017-10-17 07:39 | Pharmacy Consult ---
Pharmacy Consult-Warfarin - Laboratory Information 10/13/17 10/13/17 10/13/17 16:36 16:38 16:38 Hgb 6.3 L Hct 19.5 L INR > 10.00 H* AST 25 ALT 10 Albumin 4.1 10/13/17 10/13/17 10/14/17 18:23 21:25 03:30 Hgb 4.9 L* D 6.7 L D Hct 15.7 L* D 20.8 L D INR > 10.00 H* AST ALT Albumin 10/14/17 10/14/17 10/14/17 03:30 03:30 03:59 Hgb Cancelled Hct INR 8.03 H* AST ALT Albumin 3.4 L 10/14/17 10/15/17 10/15/17 08:15 03:59 03:59 Hgb 8.6 L D 8.3 L Hct 25.7 L D INR 1.84 H AST ALT Albumin 10/16/17 10/16/17 10/17/17 03:51 03:51 04:27 Hgb 8.8 L Hct 27.1 L INR 1.47 H 3.32 H AST ALT Albumin 10/17/17 04:27 Hgb 7.6 L D Hct 24.2 L INR AST ALT Albumin - Consult Information COUMADIN CONSULT (Recurring): 77 yr old female patient 5'0" 53.8 kg on warfarin for A-Fib Dx: Supratherapeutic INR and UTI Patient had an abdominal aortic aneurysm repair earlier this month. The patient is also on Plavix 75 mg daily. She has Chronic Renal Disease Stage 4. Baseline INR = >10 at admit. Had Vit K 5 mg orally on 10/13 and again on 10/14. Her INR is dropped to 1.84 and then continued to drop even with warfarin dose to 1.47. She is receiving Rocephin for her UTI. The Rocephin can cause her INR to increase. Her home med dose averages out to 2 mg daily. She takes 1.5 mg 5 days a week and 1 mg 2 days per week. Total of 15 mg weekly. DATE INR DOSE 10/15 1.84 3 MG 10/16 1.47 5 MG 10/17 3.32 No Warfarin Today The effect of the 10 mg of vitamin K given this past weekend has now worn off. Pharmacy will continue to monitor the INR and adjust the Warfarin dose as needed. Thank you. Tosha Chávez, PharmD
[2017-10-17] MEDS: CLOPIDOGREL 75 MG TABLET PO SCH (08:56)
[2017-10-17] MEDS: FERROUS SULFATE 324 MG TABLET PO SCH (08:56)
[2017-10-17] MEDS: POLYETHYL GLYCOL 3350 17gm PACKET PO SCH (08:56)
[2017-10-17] MEDS: FOLIC ACID 1 MG TABLET PO SCH (08:56)
[2017-10-17] MEDS: SENNA + DOCUSATE TABLET PO SCH ×2 (08:56→20:20)
[2017-10-17] MEDS: CITALOPRAM 40 MG TABLET PO SCH (08:56)
[2017-10-17] MEDS: SODIUM BICARBONATE 650 MG TABLET PO SCH ×2 (08:56→20:20)
[2017-10-17] MEDS ORDERED: NS FLUSH BAG 500ml IV PRN (11:09)
--- NOTE | 2017-10-17 11:35 | Progress Note ---
- Date 10/17/17 Subjective: Patient is seen today resting in bed. She denies pain. She does not feel lightheaded or dizzy although nurses state that she didn't want to get up earlier because she was complaining of dizziness. She is not eating well. She does say she is drinking the mighty shakes. When asked if she knows what today is, she says "hopefully the day I go home." No chest pain, shortness of breath, fever, nausea or vomiting. Objective Vital signs: Temperature 99.4 F 10/17/17 08:00 Pulse Rate 124 H 10/17/17 08:16 Respiratory Rate 20 10/17/17 08:00 Blood Pressure 119/76 10/17/17 08:16 Pulse Oximetry 96 10/17/17 08:00 Height/Weight/BMI: Height 1.52 m Weight 55.2 kg Body Mass Index 23.1 - Constitutional Present: no acute distress, well nourished, well developed - Routine HEENT Exam Head: Present: normocephalic, atraumatic - Routine Respiratory Exam Present: CTA bilaterally. Absent: wheezes - Routine Cardiovascular Exam Present: no murmur, irregularly irregular - Routine Abdominal Exam Present: soft, non distended, non tender - Routine Extremities Exam Present: no edema, normal capillary refill - Routine Skin Exam Present: dry, warm - Routine Neurological Exam Present: alert, normal speech - Routine Lymphatic Exam Lymphatic: Absent: adenopathy - Routine Psychiatric Exam Present: normal affect, cooperative Results - Labs CBC & Chem 7: 10/17/17 04:27 10/17/17 04:27 Microbiology Results: Microbiology 10/13/17 17:54 Urine, Voided (Cc/notcc) Urine Culture - Final Klebsiella oxytoca Enterobacter aerogenes Assessment and Plan Assessment and Plan: Impression: Symptomatic/severe anemia, macrocytic - s/p PRBC x3 units (1U 10/13, 1U 10/14, 1U 10/17) Coagulopathy due to warfarin Generalized weakness Ambulatory dysfunction with falls Lightheadedness UTI - Klebsiella oxytoca and Enterobacter aerogenes (completed 5 d course of Rocephin 10/17) Anorexia Nausea Hyponatremia (POA) - resolved Atrial fibrillation with RVR CKD, stage IV AAA, recent endovascular stent GERD History CVA Left adrenal nodule, 2.2 [id number] recommended Iron deficiency Constipation Tobacco dependency Plan Last day of Rocephin for UTI. Day #5. UC Klebsiella oxytoca, Enterobacter aerogenes - both S to ceftriaxone. INR 3.32. She had 5 mg vitamin K on 10/14 and 10/15. Holding warfarin today. CM checked on NOAC pricing. Will require prior auth to determine coverage. Will defer change to NOAC to her PCP as by the time the PA is completed, pt will likely no longer be in the hospital. Hgb dropped 8.8-->7.6. S/p 2U PRBC on 10/13 & 10/14. Continues on ferrous sulfate started 10/16/17. Give 1U PRBC's today. Heart rate improved. Home amlodipine and spironolactone remain on hold. Continues with poor PO intake. Continue IVF's NS at 100cc/hr, encourage nutritional supplements. Bladder training with [facility]. DVT Prophylaxis: Coumadin Resuscitation Status: Do Not Resuscitate - Time spent with patient Time with patient PN: 25 minutes - Physician Narrative Physician: Jaycob Linder MD Narrative: Date: 10/17/17 Time: 1425 Have independently interviewed & examined pt. Chart reviewed. Case discussed with CM & my PA. Care plan developed with my supervision; agree with above. Doing okay. Still notes very decreased appetite-nothing sounds good. Not reporting ab pain or nausea. Stools slow. Breathing feels well-not congested or SOA. No chest pain. Reports trying to be up more. Still does feel weak/unsteady with positional changes. Lungs: decreased, no distress CV: irregularly irregular AB: soft nt/nd MSE: awake alert Plan: Will give 1 unit of pRBC today as HGB decreased to 7.6 and patient needing to continue anticoagulation. Encourage oral intake-can have outside food as she desired. Encourage therapy and activities. Monitor lab. Hospital Course Summary Disclaimer: The visit summary below is not to be considered part of the above Progress Note. Hospital Course: 10/13/17 Mrs. Rivas is admitted with combination of severe symptomatic anemia, falls with extensive bruising, and INR greater than 10. Vitamin K was given in the emergency room and warfarin will be held. Repeat hemoglobin was found to be 4.9. 2 units of packed cells will be transfused overnight. With recent endovascular stent Plavix will need to be continued. By history no blood loss reported beyond recent surgical blood loss and suspected anemia of chronic disease due to underlying renal failure. Last hemoglobin available in the [facility] system was 12.3 in January 2016. Hemoccults unlikely to be helpful at present as almost certainly will be positive with INR as high as it is. PPI initiated empirically with Protonix. Continue metoprolol provided systolic blood pressure permits; continue Plavix due to stent. Majority of home medications on hold. 10/14/17 Hgb improved to 8.6 after being transfused 2 units PRBC. LDH to be added to pre-transfusion labs from yesterday to assess for hemolysis. INR still grossly elevated at 8.03 and additional vitamin K has been ordered. Hyponatremia resolved, na 137. Renal function showing improvement with cr 2.2. K 4.6. 10/15/17 Hgb 8.3, s/p 2 units PRBC. Iron level = 29, B12 491. Start ferrous sulfate. INR down to 1.84 after 2nd dose of Vit K was given yesterday. Will resume Coumadin per pharmacy protocol. 10/16/17 Continue Rocephin for UTI - Day #4. UC Klebsiella oxytoca, enterobacter aerogenes - both Sensitive to ceftriaxone. INR down to 1.47. She had 5 mg vitamin K on 10/14 and 10/15. Will give renal dose Lovenox today. Warfarin per pharm. global program manager is pricing Eliquis and Xarelto as patient would like to switch to NOAC. Will start whichever med is covered. Hgb improving - 8.8. S/p 2U PRBC on 10/13 & 10/14. Continues on ferrous sulfate started 10/16/17. A-fib with RVR the majority of the time. On metoprolol 25mg BID. Observe for now. See if this improves with starting IVF's. Pt with poor PO intake. Start IVF's NS at 100cc/hr, encourage nutritional supplements. 10/17/17 Last day of Rocephin for UTI. INR 3.32. Holding warfarin today. CM checked on NOAC pricing - requires prior auth to determine coverage. Defer change to NOAC to her PCP as by the time the PA is completed, pt will likely no longer be in the hospital. Hgb dropped 8.8-->7.6. Give 1U PRBC's today.
[2017-10-17] MEDS: CEFTRIAXONE 1 G in NS 100 ML IV SCH (18:05)
[2017-10-17] MEDS: ROSUVASTATIN 20 MG TABLET PO SCH (20:20)
[2017-10-17] MEDS: LACTOBACILLUS (15B cfu) CAPSULE PO SCH (20:21)
[2017-10-18] MEDS: NS 1,000 ML IV SCH ×2 (02:53→13:51)
[2017-10-18] MEDS: PANTOPRAZOLE 40 MG TABLET PO SCH (06:07)
[2017-10-18] MEDS: ALBUTEROL/IPRATROPIUM 2.5mg-0.5mg/3ml NEB AEROSOL SCH ×4 (08:05→19:35)
--- NOTE | 2017-10-18 08:53 | Pharmacy Consult ---
Pharmacy Consult-Warfarin - Laboratory Information 10/13/17 10/13/17 10/13/17 16:36 16:38 16:38 Hgb 6.3 L Hct 19.5 L INR > 10.00 H* AST 25 ALT 10 Albumin 4.1 10/13/17 10/13/17 10/14/17 18:23 21:25 03:30 Hgb 4.9 L* D 6.7 L D Hct 15.7 L* D 20.8 L D INR > 10.00 H* AST ALT Albumin 10/14/17 10/14/17 10/14/17 03:30 03:30 03:59 Hgb Cancelled Hct INR 8.03 H* AST ALT Albumin 3.4 L 10/14/17 10/15/17 10/15/17 08:15 03:59 03:59 Hgb 8.6 L D 8.3 L Hct 25.7 L D INR 1.84 H AST ALT Albumin 10/16/17 10/16/17 10/17/17 03:51 03:51 04:27 Hgb 8.8 L Hct 27.1 L INR 1.47 H 3.32 H AST ALT Albumin 10/17/17 10/17/17 10/18/17 04:27 16:14 03:59 Hgb 7.6 L D 8.6 L D Hct 24.2 L INR 5.13 H* AST ALT Albumin 10/18/17 03:59 Hgb 9.3 L Hct 29.1 L D INR AST ALT Albumin - Consult Information No warfarin will be ordered today. Nursing notified to report to pharmacy any clinical signs of bleeding and we will order some vitamin K. Thank you.
[2017-10-18] MEDS: POLYETHYL GLYCOL 3350 17gm PACKET PO SCH (10:16)
[2017-10-18] MEDS: CALCITRIOL 0.25 MCG CAPSULE PO SCH (10:16)
[2017-10-18] MEDS: SODIUM BICARBONATE 650 MG TABLET PO SCH ×2 (10:16→20:40)
[2017-10-18] MEDS: FERROUS SULFATE 324 MG TABLET PO SCH (10:16)
[2017-10-18] MEDS: FOLIC ACID 1 MG TABLET PO SCH (10:16)
[2017-10-18] MEDS: CLOPIDOGREL 75 MG TABLET PO SCH (10:16)
[2017-10-18] MEDS: SENNA + DOCUSATE TABLET PO SCH ×2 (10:16→20:40)
[2017-10-18] MEDS: CITALOPRAM 40 MG TABLET PO SCH (10:17)
--- NOTE | 2017-10-18 13:02 | Progress Note ---
- Date 10/18/17 Subjective: Patient is seen resting in bed. She reports she is feeling better today. No pain. She is trying to eat a little more. No CP, SOA, n/v/f/c. Objective Vital signs: Temperature 97.9 F 10/18/17 11:18 Pulse Rate 113 H 10/18/17 11:18 Respiratory Rate 16 10/18/17 12:33 Blood Pressure 129/93 H 10/18/17 11:18 Pulse Oximetry 96 10/18/17 11:18 Height/Weight/BMI: Height 1.52 m Weight 56.5 kg Body Mass Index 23.1 - Constitutional Present: no acute distress, well nourished, well developed - Routine HEENT Exam Head: Present: normocephalic, atraumatic - Routine Respiratory Exam Present: CTA bilaterally. Absent: wheezes - Routine Cardiovascular Exam Present: no murmur, irregular rhythm - Routine Abdominal Exam Present: soft, non distended, non tender - Routine Extremities Exam Present: no edema, normal capillary refill - Routine Skin Exam Present: dry, warm Comments: resolving ecchymosis R side of face - Routine Neurological Exam Present: alert, normal speech - Routine Lymphatic Exam Lymphatic: Absent: adenopathy - Routine Psychiatric Exam Present: normal affect, cooperative Results - Labs CBC & Chem 7: 10/18/17 03:59 10/18/17 03:59 Microbiology Results: Microbiology 10/13/17 17:54 Urine, Voided (Cc/notcc) Urine Culture - Final Klebsiella oxytoca Enterobacter aerogenes Assessment and Plan Assessment and Plan: Impression Symptomatic/severe anemia, macrocytic - s/p PRBC x3 units (1U 10/13, 1U 10/14, 1U 10/17) Coagulopathy due to warfarin Generalized weakness Ambulatory dysfunction with falls Lightheadedness UTI - Klebsiella oxytoca and Enterobacter aerogenes (completed 5 d course of Rocephin 10/17) Anorexia Nausea Hyponatremia (POA) - resolved Atrial fibrillation with RVR CKD, stage IV AAA, recent endovascular stent GERD History CVA Left adrenal nodule, 2.2 [id number] recommended Iron deficiency Constipation Tobacco dependency Plan Continue to monitor INR. Supratherapeutic today at 5.13. Pharm holding warfarin. KENDALL Mahmood Hgb stable this am after receiving 1U PRBC's yesterday. Repeat CBC in am. Wt and fluid balance are up - will decrease IVF's to 50cc/hr. Kidney function continues to improve. Heart rate has averaged >100 throughout her stay. Increase metoprolol tartrate from 25mgBID to 37.5mg BID. Hold for systolic pressure <100. Home amlodipine and spironolactone remain on hold. Continue to encourage therapies and nutritional supplements. DVT Prophylaxis: Coumadin Resuscitation Status: Do Not Resuscitate - Time spent with patient Time with patient PN: 25 minutes - Physician Narrative Physician: Jaycob Linder MD Narrative: Date: 10/18/17 Time: 1424 Have independently interviewed & examined pt. Chart reviewed. Case discussed with my PA. Care plan developed with my supervision; agree with above. Resting in bed this afternoon-just back from walking in halls with therapy (out in halls when I came by earlier). Feels like she is doing okay. Breathing well- not SOA or congested. No chest pain. Little appetite - at home lives on '[employer] straw[employer] milkshakes.' No ab pain or nausea. Reports having stool. HGB improved post transfusion but INR with increase to 5.13 Lungs: decreased, no distress CV: irregularly irregular AB: soft nt/nd MSE: awake alert appropriate Plan: Remove mahmood. Decrease IVF - possible stop later this evening. Increase metoprolol secondary to tachycardia. Pharm adjusting Coumadin-INR with elevation. Encourage continued activities for strength-very important as patient desires to return to home at discharge. Hospital Course Summary Disclaimer: The visit summary below is not to be considered part of the above Progress Note. Hospital Course: 10/13/17 Mrs. Rivas is admitted with combination of severe symptomatic anemia, falls with extensive bruising, and INR greater than 10. Vitamin K was given in the emergency room and warfarin will be held. Repeat hemoglobin was found to be 4.9. 2 units of packed cells will be transfused overnight. With recent endovascular stent Plavix will need to be continued. By history no blood loss reported beyond recent surgical blood loss and suspected anemia of chronic disease due to underlying renal failure. Last hemoglobin available in the [facility] system was 12.3 in January 2016. Hemoccults unlikely to be helpful at present as almost certainly will be positive with INR as high as it is. PPI initiated empirically with Protonix. Continue metoprolol provided systolic blood pressure permits; continue Plavix due to stent. Majority of home medications on hold. 10/14/17 Hgb improved to 8.6 after being transfused 2 units PRBC. LDH to be added to pre-transfusion labs from yesterday to assess for hemolysis. INR still grossly elevated at 8.03 and additional vitamin K has been ordered. Hyponatremia resolved, na 137. Renal function showing improvement with cr 2.2. K 4.6. 10/15/17 Hgb 8.3, s/p 2 units PRBC. Iron level = 29, B12 491. Start ferrous sulfate. INR down to 1.84 after 2nd dose of Vit K was given yesterday. Will resume Coumadin per pharmacy protocol. 10/16/17 Continue Rocephin for UTI - Day #4. UC Klebsiella oxytoca, enterobacter aerogenes - both Sensitive to ceftriaxone. INR down to 1.47. She had 5 mg vitamin K on 10/14 and 10/15. Will give renal dose Lovenox today. Warfarin per pharm. plant culture manager is pricing Eliquis and Xarelto as patient would like to switch to NOAC. Will start whichever med is covered. Hgb improving - 8.8. S/p 2U PRBC on 10/13 & 10/14. Continues on ferrous sulfate started 10/16/17. A-fib with RVR the majority of the time. On metoprolol 25mg BID. Observe for now. See if this improves with starting IVF's. Pt with poor PO intake. Start IVF's NS at 100cc/hr, encourage nutritional supplements. 10/17/17 Last day of Rocephin for UTI. INR 3.32. Holding warfarin today. CM checked on NOAC pricing - requires prior auth to determine coverage. Defer change to NOAC to her PCP as by the time the PA is completed, pt will likely no longer be in the hospital. Hgb dropped 8.8-->7.6. Give 1U PRBC's today. 10/18/17 Continue to monitor INR. Supratherapeutic today at 5.13. Pharm holding warfarin. KENDALL Mahmood Hemoglobin improve to 9.3 this am after receiving 1U PRBC's yesterday. Repeat CBC in am. Wt and fluid balance are up - will decrease IVF's to 50cc/hr; will stop this evening. Kidney function continues to improve - creatinine at 1.6. Heart rate has averaged >100 throughout her stay. Increase metoprolol tartrate from 25mgBID to 37.5mg BID. Hold for systolic pressure <100. Home amlodipine and spironolactone remain on hold. Continue to encourage therapies and nutritional supplements.
[2017-10-18] MEDS: LACTOBACILLUS (15B cfu) CAPSULE PO SCH (20:40)
[2017-10-18] MEDS: ROSUVASTATIN 20 MG TABLET PO SCH (20:40)
[2017-10-19] MEDS ORDERED: FALL RISK - PHARMACY CONSULT MC ONE (01:11)
[2017-10-19] MEDS: NS 1,000 ML IV SCH ×2 (06:15→16:33)
[2017-10-19] MEDS: PANTOPRAZOLE 40 MG TABLET PO SCH (06:16)
[2017-10-19] MEDS: ALBUTEROL/IPRATROPIUM 2.5mg-0.5mg/3ml NEB AEROSOL SCH ×4 (06:53→19:49)
[2017-10-19] MEDS: SENNA + DOCUSATE TABLET PO SCH ×2 (08:27→20:32)
[2017-10-19] MEDS: SODIUM BICARBONATE 650 MG TABLET PO SCH ×2 (08:28→20:31)
[2017-10-19] MEDS: FOLIC ACID 1 MG TABLET PO SCH (08:28)
[2017-10-19] MEDS: CLOPIDOGREL 75 MG TABLET PO SCH (08:28)
[2017-10-19] MEDS: POLYETHYL GLYCOL 3350 17gm PACKET PO SCH (08:29)
[2017-10-19] MEDS: FERROUS SULFATE 324 MG TABLET PO SCH (08:29)
[2017-10-19] MEDS: CITALOPRAM 40 MG TABLET PO SCH (08:29)
--- NOTE | 2017-10-19 08:43 | Pharmacy Consult ---
Pharmacy Consult-Warfarin - Laboratory Information 10/13/17 10/13/17 10/13/17 16:36 16:38 16:38 Hgb 6.3 L Hct 19.5 L INR > 10.00 H* AST 25 ALT 10 Albumin 4.1 10/13/17 10/13/17 10/14/17 18:23 21:25 03:30 Hgb 4.9 L* D 6.7 L D Hct 15.7 L* D 20.8 L D INR > 10.00 H* AST ALT Albumin 10/14/17 10/14/17 10/14/17 03:30 03:30 03:59 Hgb Cancelled Hct INR 8.03 H* AST ALT Albumin 3.4 L 10/14/17 10/15/17 10/15/17 08:15 03:59 03:59 Hgb 8.6 L D 8.3 L Hct 25.7 L D INR 1.84 H AST ALT Albumin 10/16/17 10/16/17 10/17/17 03:51 03:51 04:27 Hgb 8.8 L Hct 27.1 L INR 1.47 H 3.32 H AST ALT Albumin 10/17/17 10/17/17 10/18/17 04:27 16:14 03:59 Hgb 7.6 L D 8.6 L D Hct 24.2 L INR 5.13 H* AST ALT Albumin 10/18/17 10/19/17 10/19/17 03:59 03:59 03:59 Hgb 9.3 L 9.1 L Hct 29.1 L D 28.8 L INR 3.91 H AST ALT Albumin - Consult Information INR above target range. No warfarin ordered for today.Will continue to monitor. Thank you.
[2017-10-19] MEDS ORDERED: METOPROLOL 5mg/5ml INJECTION IVP ONE (11:32)
--- NOTE | 2017-10-19 11:41 | Progress Note ---
- Date 10/19/17 Subjective: Lynn is seen today in follow up. She is resting in bed with family at her bedside. She is feeling very tired today and reports feeling worn work. She continues to by in A-fib RVR 110-140. She denies having any pain on examination. Heard cath was removed last night, she did void some this am however has had overall decreased output. Appetite decreased- no breakfast today. Overall appears weak and fragile. Objective Vital signs: Temperature 98.8 F 10/19/17 07:39 Pulse Rate 114 H 10/19/17 08:00 Respiratory Rate 16 10/19/17 10:04 Blood Pressure 141/94 H 10/19/17 07:39 Pulse Oximetry 97 10/19/17 10:04 Height/Weight/BMI: Height 1.52 m Weight 57 kg Body Mass Index 23.1 - Constitutional Present: no acute distress, well nourished, well developed - Routine HEENT Exam Eye: Present: EOMI ENT: Present: mucous membranes moist, dentition normal - Routine Respiratory Exam Present: CTA bilaterally. Absent: wheezes - Routine Cardiovascular Exam Present: no murmur, tachycardia (115), irregular rhythm, irregularly irregular. Absent: murmur - Routine Abdominal Exam Present: soft, non distended. Absent: normoactive bowel sounds (hypoactive), tenderness - Routine Extremities Exam Present: normal capillary refill - Routine Skin Exam Present: intact, dry, warm - Routine Neurological Exam Present: alert, oriented X3, CN II-XII intact, moving all extremities - Routine Lymphatic Exam Lymphatic: Absent: adenopathy - Routine Psychiatric Exam Present: normal affect, cooperative Results - Labs CBC & Chem 7: 10/19/17 03:59 10/19/17 03:59 Microbiology Results: Microbiology 10/13/17 17:54 Urine, Voided (Cc/notcc) Urine Culture - Final Klebsiella oxytoca Enterobacter aerogenes Assessment and Plan Assessment and Plan: Impression Symptomatic/severe anemia, macrocytic - s/p PRBC x3 units (1U 10/13, 1U 10/14, 1U 10/17) Coagulopathy due to warfarin Generalized weakness Ambulatory dysfunction with falls Lightheadedness UTI - Klebsiella oxytoca and Enterobacter aerogenes (completed 5 d course of Rocephin 10/17) Anorexia Nausea Hyponatremia (POA) - resolved Atrial fibrillation with RVR CKD, stage IV AAA, recent endovascular stent GERD History CVA Left adrenal nodule, 2.2 [id number] recommended Iron deficiency Constipation Tobacco dependency Plan Appears weak and fragile today. Hemoglobin has remained stable at 9.1. Telemetry reviewed by myself, remains in atrial fibrillation with rapid ventricular rate 110-140. Beta patricia was increased to 37.5,g BID last evening. Will give a one-time dose of Lopressor 5 grams IV now. May need to consider increasing to 50 milligrams twice a day. Creatinine continues to improve- Today 1.5. Has been is concerned as patient is not receiving daily. Warfarin. We did discuss that we are following carefully as she has been supratherapeutic, INR today3.91 Monitor for evidence of urinary retention. Discussed with nursing staff post void bladder scan Continue to encourage work with PT and OT for strengthening as patient does wish to return home. Case discussed with attending, Dr Linder DVT Prophylaxis: Coumadin Resuscitation Status: Do Not Resuscitate - Time spent with patient Time with patient PN: 25 minutes - Physician Narrative Physician: Jaycob Linder MD Narrative: Date: 10/19/17 Time: 1600 Have independently interviewed and examined pt. Chart reviewed. Case discussed with CM and my REGIONAL SALES MANAGER. Care plan developed with my supervision; agree with above. Feels like she is improving. Working on more walking-strength increasing. Appetite with slight improvement. Breathing well. Not having chest pressure, pain, or palpitations. Bowels moving. Lungs: decreased, no distress CV: irregularly irregular AB: soft nt/nd MSE: awake alert appropriate Plan: Can discontinue IVF-oral drive improving gradually. INR with decreased. Continue with therapy to improve functional status. Home Health arrangement's made for time of discharge. Hope for discharge in near future if INR normalizes and hemoglobin remains stable. Hospital Course Summary Disclaimer: The visit summary below is not to be considered part of the above Progress Note. Hospital Course: 10/13/17 Mrs. Rivas is admitted with combination of severe symptomatic anemia, falls with extensive bruising, and INR greater than 10. Vitamin K was given in the emergency room and warfarin will be held. Repeat hemoglobin was found to be 4.9. 2 units of packed cells will be transfused overnight. With recent endovascular stent Plavix will need to be continued. By history no blood loss reported beyond recent surgical blood loss and suspected anemia of chronic disease due to underlying renal failure. Last hemoglobin available in the [facility] system was 12.3 in January 2016. Hemoccults unlikely to be helpful at present as almost certainly will be positive with INR as high as it is. PPI initiated empirically with Protonix. Continue metoprolol provided systolic blood pressure permits; continue Plavix due to stent. Majority of home medications on hold. 10/14/17 Hgb improved to 8.6 after being transfused 2 units PRBC. LDH to be added to pre-transfusion labs from yesterday to assess for hemolysis. INR still grossly elevated at 8.03 and additional vitamin K has been ordered. Hyponatremia resolved, na 137. Renal function showing improvement with cr 2.2. K 4.6. 10/15/17 Hgb 8.3, s/p 2 units PRBC. Iron level = 29, B12 491. Start ferrous sulfate. INR down to 1.84 after 2nd dose of Vit K was given yesterday. Will resume Coumadin per pharmacy protocol. 10/16/17 Continue Rocephin for UTI - Day #4. UC Klebsiella oxytoca, enterobacter aerogenes - both Sensitive to ceftriaxone. INR down to 1.47. She had 5 mg vitamin K on 10/14 and 10/15. Will give renal dose Lovenox today. Warfarin per pharm. salon/spa manager is pricing Eliquis and Xarelto as patient would like to switch to NOAC. Will start whichever med is covered. Hgb improving - 8.8. S/p 2U PRBC on 10/13 & 10/14. Continues on ferrous sulfate started 10/16/17. A-fib with RVR the majority of the time. On metoprolol 25mg BID. Observe for now. See if this improves with starting IVF's. Pt with poor PO intake. Start IVF's NS at 100cc/hr, encourage nutritional supplements. 10/17/17 Last day of Rocephin for UTI. INR 3.32. Holding warfarin today. CM checked on NOAC pricing - requires prior auth to determine coverage. Defer change to NOAC to her PCP as by the time the PA is completed, pt will likely no longer be in the hospital. Hgb dropped 8.8-->7.6. Give 1U PRBC's today. 10/18/17 Continue to monitor INR. Supratherapeutic today at 5.13. Pharm holding warfarin. KENDALL Heard Hemoglobin improve to 9.3 this am after receiving 1U pRBC's yesterday. Repeat CBC in am. Wt and fluid balance are up - will decrease IVF's to 50cc/hr. Kidney function continues to improve - creatinine at 1.6. Heart rate has averaged >100 throughout her stay. Increase metoprolol tartrate from 25mgBID to 37.5mg BID. Hold for systolic pressure <100. Home amlodipine and spironolactone remain on hold. BP controlled. Continue to encourage therapies and nutritional supplements. 10/19/17 Appears weak and fragile today. Hemoglobin has remained stable at 9.1. Telemetry reviewed by myself, remains in atrial fibrillation with rapid ventricular rate 110-140. Beta patricia was increased to 37.5mg BID last evening. Will give a one-time dose of Lopressor 5 grams IV now. May need to consider increasing to 50 milligrams twice a day. Creatinine continues to improve- Today 1.5. Can discontinue IVF. She is concerned as she is not receiving daily warfarin. Discussed that we are following carefully as she has been supratherapeutic, INR today 3.91. Monitor for evidence of urinary retention. Discussed with nursing staff - post void bladder scan
[2017-10-19] MEDS: LACTOBACILLUS (15B cfu) CAPSULE PO SCH (20:31)
[2017-10-19] MEDS: ROSUVASTATIN 20 MG TABLET PO SCH (20:31)
[2017-10-20] MEDS: ALBUTEROL/IPRATROPIUM 2.5mg-0.5mg/3ml NEB AEROSOL SCH ×2 (06:53→11:11)
[2017-10-20] MEDS: PANTOPRAZOLE 40 MG TABLET PO SCH (07:05)
[2017-10-20] MEDS: FERROUS SULFATE 324 MG TABLET PO SCH (08:34)
[2017-10-20] MEDS: POLYETHYL GLYCOL 3350 17gm PACKET PO SCH (08:34)
[2017-10-20] MEDS: CALCITRIOL 0.25 MCG CAPSULE PO SCH (08:34)
[2017-10-20] MEDS: SENNA + DOCUSATE TABLET PO SCH (08:35)
[2017-10-20] MEDS: CLOPIDOGREL 75 MG TABLET PO SCH (08:35)
[2017-10-20] MEDS: SODIUM BICARBONATE 650 MG TABLET PO SCH (08:35)
[2017-10-20] MEDS: FOLIC ACID 1 MG TABLET PO SCH (08:35)
[2017-10-20] MEDS: CITALOPRAM 40 MG TABLET PO SCH (08:35)
--- NOTE | 2017-10-20 09:58 | Pharmacy Consult ---
Pharmacy Consult-Warfarin - Laboratory Information 10/13/17 10/13/17 10/13/17 16:36 16:38 16:38 Hgb 6.3 L Hct 19.5 L INR > 10.00 H* AST 25 ALT 10 Albumin 4.1 10/13/17 10/13/17 10/14/17 18:23 21:25 03:30 Hgb 4.9 L* D 6.7 L D Hct 15.7 L* D 20.8 L D INR > 10.00 H* AST ALT Albumin 10/14/17 10/14/17 10/14/17 03:30 03:30 03:59 Hgb Cancelled Hct INR 8.03 H* AST ALT Albumin 3.4 L 10/14/17 10/15/17 10/15/17 08:15 03:59 03:59 Hgb 8.6 L D 8.3 L Hct 25.7 L D INR 1.84 H AST ALT Albumin 10/16/17 10/16/17 10/17/17 03:51 03:51 04:27 Hgb 8.8 L Hct 27.1 L INR 1.47 H 3.32 H AST ALT Albumin 10/17/17 10/17/17 10/18/17 04:27 16:14 03:59 Hgb 7.6 L D 8.6 L D Hct 24.2 L INR 5.13 H* AST ALT Albumin 10/18/17 10/19/17 10/19/17 03:59 03:59 03:59 Hgb 9.3 L 9.1 L Hct 29.1 L D 28.8 L INR 3.91 H AST ALT Albumin 10/20/17 10/20/17 03:54 03:54 Hgb 8.9 L Hct 27.8 L INR 2.53 H AST ALT Albumin - Consult Information COUMADIN CONSULT: day 6 77 yr old female patient 5'0" 53.8 kg on warfarin for A-Fib Dx: Supratherapeutic INR and UTI Patient had an abdominal aortic aneurysm repair earlier this month. The patient is also on Plavix 75 mg daily. She has Chronic Renal Disease Stage 4. Baseline INR = >10 at admit. Had Vit K 5 mg orally on 10/13 and again on 10/14. Her INR is dropped to 1.84 and then continued to drop even with warfarin dose to 1.47. She is receiving Rocephin for her UTI. The Rocephin can cause her INR to increase. Her home med dose averages out to 2 mg daily. She takes 1.5 mg 5 days a week and 1 mg 2 days per week. Total of 15 mg weekly. DATE INR DOSE 10/15 1.84 3 mg 10/16 1.47 5 mg 10/17 3.32 No dose given 10/18 5.13 no dose given 10/19 3.91 no dose given 10/20 2.53 plan: 1.5 mg INR is back in therapeutic range. will give warfarin 1.5 mg po today. This dose matches patient's home dose. Pharmacy will continue to monitor the INR and adjust the Warfarin dose as needed. Thank you. Donya Zazueta RP
--- NOTE | 2017-10-20 10:56 | Progress Note ---
- Date 10/20/17 Subjective: F/U: Symptomatic/severe anemia, Coagulopathy due to warfarin, Generalized weakness, Ambulatory dysfunction with fall Resting in bed this am. Feeling at baseline. Has been getting up more and feels moving better. Not having increased dizziness or unsteadiness with positional changes. Appetite stable-not hungry, but working on trying to eat more. No ab pain or nausea. Breathing well without SOA, cough, congestion, or pain with breathing. No chest pressure or discomfort. Feels ready to go home. Objective Vital signs: Temperature 98.1 F 10/20/17 08:32 Pulse Rate 99 10/20/17 08:32 Respiratory Rate 20 10/20/17 08:32 Blood Pressure 136/76 10/20/17 08:32 Pulse Oximetry 95 10/20/17 08:32 Height/Weight/BMI: Height 1.52 m Weight 56.9 kg Body Mass Index 23.1 - Constitutional Present: well nourished, well developed, average body habitus, cooperative. Absent: combative, agitated - Routine HEENT Exam Head: Present: normocephalic, atraumatic Eye: Present: EOMI, PERRL ENT: Present: mucous membranes moist - Routine Respiratory Exam Present: decreased breath sounds. Absent: rales, respiratory distress, rhonchi , stridor, wheezes, crackles - Routine Cardiovascular Exam Present: irregular rhythm, irregularly irregular - Routine Abdominal Exam Present: soft, normoactive bowel sounds, non distended, non tender. Absent: guarding - Routine Extremities Exam Present: no edema. Absent: cyanosis, clubbing - Routine Musculoskeletal Exam Musculoskeletal: Present: no clubbing or cyanosis - Routine Skin Exam Present: dry, warm - Routine Neurological Exam Present: alert, CN II-XII intact, moving all extremities, vision grossly intact , hearing grossly intact, normal speech. Absent: altered mental status - Routine Psychiatric Exam Present: normal affect, normal thought process, cooperative Results - Labs CBC & Chem 7: 10/20/17 03:54 10/20/17 03:54 Microbiology Results: Microbiology 10/13/17 17:54 Urine, Voided (Cc/notcc) Urine Culture - Final Klebsiella oxytoca Enterobacter aerogenes Assessment and Plan (1) Symptomatic anemia Current visit: Yes Status: Acute (2) Prothrombin time increased due to coumadin Current visit: Yes Status: Acute Assessment and Plan: Impression Symptomatic/severe anemia, macrocytic - s/p PRBC x3 units (1U 10/13, 1U 10/14, 1U 10/17) Coagulopathy due to warfarin Generalized weakness Ambulatory dysfunction with falls Lightheadedness UTI - Klebsiella oxytoca and Enterobacter aerogenes (completed 5 d course of Rocephin 10/17) Anorexia Nausea Hyponatremia (POA) - resolved Atrial fibrillation with RVR CKD, stage IV AAA, recent endovascular stent GERD History CVA Left adrenal nodule, 2.2 lb-[id number]-[id number] recommended Iron deficiency Constipation Tobacco dependency Plan Clinically doing well. Strength at baseline. INR therapeutic at 2.53 with HGB 8.9. Creatinine 1.5 with potassium 3.9. Medically stable for discharge to home. Encourage low sodium diet. Nutritional supplements 3 times a day. Increase activities as able. Will continue with warfarin at 1mg daily. (would use 1.5mg 2x a week prior to admission). Will need INR recheck in upcoming days. Consider changing to Eliquis or Xarelto at PCP discretion. Can restart Spironolactone. Would hold on Norvasc for now as blood pressure stable without - may need to restart in near future. Increase metoprolol to 50mg BID with meals. Monitor heart rate and blood pressure. F/U with Hermes Kothari in 1 week - will need INR and BMP rechecked secondary to medication use. See orders for details. Case discussed with nursing and patient's . Time spent with patient's care and discharge greater than 30 minutes. DVT Prophylaxis: Coumadin GI Prophylaxis: Protonix Resuscitation Status: Do Not Resuscitate - Physician Narrative Physician: Jaycob Linder MD Narrative: Date: 10/20/17 Time: 1057 Hospital Course Summary Disclaimer: The visit summary below is not to be considered part of the above Progress Note. Hospital Course: 10/13/17 Mrs. Rivas is admitted with combination of severe symptomatic anemia, falls with extensive bruising, and INR greater than 10. Vitamin K was given in the emergency room and warfarin will be held. Repeat hemoglobin was found to be 4.9. 2 units of packed cells will be transfused overnight. With recent endovascular stent Plavix will need to be continued. By history no blood loss reported beyond recent surgical blood loss and suspected anemia of chronic disease due to underlying renal failure. Last hemoglobin available in the [facility] system was 12.3 in January 2016. Hemoccults unlikely to be helpful at present as almost certainly will be positive with INR as high as it is. PPI initiated empirically with Protonix. Continue metoprolol provided systolic blood pressure permits; continue Plavix due to stent. Majority of home medications on hold. 10/14/17 Hgb improved to 8.6 after being transfused 2 units PRBC. LDH to be added to pre-transfusion labs from yesterday to assess for hemolysis. INR still grossly elevated at 8.03 and additional vitamin K has been ordered. Hyponatremia resolved, na 137. Renal function showing improvement with cr 2.2. K 4.6. 10/15/17 Hgb 8.3, s/p 2 units PRBC. Iron level = 29, B12 491. Start ferrous sulfate. INR down to 1.84 after 2nd dose of Vit K was given yesterday. Will resume Coumadin per pharmacy protocol. 10/16/17 Continue Rocephin for UTI - Day #4. UC Klebsiella oxytoca, Enterobacter aerogenes - both Sensitive to ceftriaxone. INR down to 1.47. She had 5 mg vitamin K on 10/14 and 10/15. Will give renal dose Lovenox today. Warfarin per pharm. program project manager is pricing Eliquis and Xarelto as patient would like to switch to NOAC. Will start whichever med is covered. Hgb improving - 8.8. S/p 2U PRBC on 10/13 & 10/14. Continues on ferrous sulfate started 10/16/17. A-fib with RVR the majority of the time. On metoprolol 25mg BID. Observe for now. See if this improves with starting IVF's. Pt with poor PO intake. Start IVF's NS at 100cc/hr, encourage nutritional supplements. 10/17/17 Last day of Rocephin for UTI. INR 3.32. Holding warfarin today. CM checked on NOAC pricing - requires prior auth to determine coverage. Defer change to NOAC to her PCP as by the time the PA is completed, pt will likely no longer be in the hospital. Hgb dropped 8.8-->7.6. Give 1U PRBC's today. 10/18/17 Continue to monitor INR. Supratherapeutic today at 5.13. Pharm holding warfarin. KENDALL Heard Hemoglobin improve to 9.3 this am after receiving 1U pRBC's yesterday. Repeat CBC in am. Wt and fluid balance are up - will decrease IVF's to 50cc/hr. Kidney function continues to improve - creatinine at 1.6. Heart rate has averaged >100 throughout her stay. Increase metoprolol tartrate from 25mgBID to 37.5mg BID. Hold for systolic pressure <100. Home amlodipine and spironolactone remain on hold. BP controlled. Continue to encourage therapies and nutritional supplements. 10/19/17 Hemoglobin has remained stable at 9.1. Telemetry reviewed by myself, remains in atrial fibrillation with rapid ventricular rate 110-140. Beta patricia was increased to 37.5mg BID last evening. Will give a one-time dose of Lopressor 5 grams IV now. May need to consider increasing to 50 milligrams twice a day. Creatinine continues to improve- Today 1.5. Can discontinue IVF. She is concerned as she is not receiving daily warfarin. Discussed that we are following carefully as she has been supratherapeutic, INR today 3.91. Monitor for evidence of urinary retention. Discussed with nursing staff - post void bladder scan 10/20/17 COUMADIN CONSULT: day 6 Anticoagulation summary of hospitalization. 77 yr old female patient 5'0" 53.8 kg on warfarin for A-Fib Dx: Supratherapeutic INR and UTI Patient had an abdominal aortic aneurysm repair earlier this month. The patient is also on Plavix 75 mg daily. She has Chronic Renal Disease Stage 4. Baseline INR = >10 at admit. Had Vit K 5 mg orally on 10/13 and again on 10/14. Her INR is dropped to 1.84 and then continued to drop even with warfarin dose to 1.47. She is receiving Rocephin for her UTI. The Rocephin can cause her INR to increase. Her home med dose averages out to 2 mg daily. She takes 1.5 mg 5 days a week and 1 mg 2 days per week. Total of 15 mg weekly. DATE INR DOSE 10/15 1.84 3 mg 10/16 1.47 5 mg 10/17 3.32 No dose given 10/18 5.13 no dose given 10/19 3.91 no dose given 10/20 2.53 plan: 1.5 mg INR is back in therapeutic range. will give warfarin 1.5 mg po today. This dose matches patient's home dose. 10/20/17 Clinically doing well. Strength at baseline. INR therapeutic at 2.53 with HGB 8.9. Creatinine 1.5 with potassium 3.9. Medically stable for discharge to home. Encourage low sodium diet. Nutritional supplements 3 times a day. Increase activities as able. Will continue with warfarin at 1mg daily. (would use 1.5mg 2x a week prior to admission). Will need INR recheck in upcoming days. Consider changing to Eliquis or Xarelto at PCP discretion. Can restart Spironolactone. Would hold on Norvasc for now as blood pressure stable without - may need to restart in near future. Increase metoprolol to 50mg BID with meals. Monitor heart rate and blood pressure. F/U with Hermes Kothari in 1 week - will need INR and BMP rechecked secondary to medication use. See orders for details.
[2017-10-20 11:20] VITALS: O2SAT 96
[2017-10-20] MEDS ORDERED: WARFARIN 3 MG TABLET PO ONE (12:00)
[2017-10-20 12:35] VITALS: BP 125/86; PULSE 108; RESP 18; TEMP 98.3
--- NOTE | 2017-10-20 14:07 | Discharge Summary ---
Discharge Information Date of admission: 10/13/17 20:40 Anticipated date of discharge: 10/20/17 Attending Physician: Jaycob Linder MD Primary care physician: Hermes Kothari Consults: PT/OT Dietary Consult - Discharge Diagnosis (1) Symptomatic anemia Status: Acute (2) Prothrombin time increased due to coumadin Status: Acute Discharge diagnosis Symptomatic/severe anemia, macrocytic - s/p PRBC x3 units (1U 10/13, 1U 10/14, 1U 10/17) Associated conditions and complications Coagulopathy due to warfarin with excessively elevated INR (POA) Generalized weakness Ambulatory dysfunction with falls Lightheadedness UTI - Klebsiella oxytoca and Enterobacter aerogenes (completed 5 d course of Rocephin 10/17) Anorexia Nausea Hyponatremia (POA) - resolved Atrial fibrillation with RVR CKD, stage IV AAA, recent endovascular stent GERD History CVA Left adrenal nodule, 2.2 [id number] recommended Iron deficiency Constipation Tobacco dependency - Procedures Procedures: BLOOD TRANSFUSIONS: 1 unit pRBC transfused on 10/13, 10/14, 10/17 - Laboratory Labs: Admit Lab 10/13/17 16:38 WBC 7.8 Hgb 6.3 L Hct 19.5 L MCV 112.7 H MCH 36.4 H Plt Count 257 Neut % (Auto) 74.0 H Lymph % (Auto) 13.8 L [place] % (Auto) 10.2 H Eos % (Auto) 1.3 Baso % (Auto) 0.3 Admit INR 10/13/17 16:36 INR > 10.00 H* Admit Lab 10/13/17 16:38 Sodium 135 L Potassium 5.0 Chloride 102 Carbon Dioxide 20 L Anion Gap 13 BUN 58.0 H* Creatinine 2.6 H GFR Calculation 18 BUN/Creatinine Ratio 22 Glucose 117 H Calculated Osmolality 277 Calcium 9.5 Total Bilirubin 0.60 AST 25 ALT 10 Alkaline Phosphatase 55 Total Protein 6.6 Albumin 4.1 Globulin 2.5 Albumin/Globulin Ratio 1.6 Laboratory Tests 10/13/17 10/13/17 21:27 21:27 Iron 29 L TIBC 276 % Saturation 11 Vitamin B12 481 Discharge INR 10/20/17 03:54 INR 2.53 H 10/20/17 03:54 10/20/17 03:54 - Microbiology Microbiology 10/13/17 17:54 Urine, Voided (Cc/notcc) Urine Culture - Final Klebsiella oxytoca Enterobacter aerogenes - Radiology Radiology: Date of Exam: 10/13/17 Type of Exam: CT abdomen pelvis wo con Findings: The lung bases are clear apart from minimal atelectasis or scarring on the left. The unenhanced contours of the liver grossly normal. Gallbladder is mildly distended. Endovascular aortic aneurysm repair, poorly evaluated without contrast. Aneurysm sac diameter measures 5.8 cm. The spleen, pancreas and right adrenal gland are within normal limits. Indeterminant 2.2 cm left adrenal lesion measuring 15 Hounsfield units in density. Superior pole left renal cyst. No free fluid or hemorrhage seen in the abdomen. Bladder is normal. No evidence of a bowel obstruction. The appendix is normal. Bone windows show degenerative change and scoliosis in the spine. Probable postprocedural changes in the inguinal areas with induration in the fat. Impression: 1. No acute disease process seen in the abdomen or pelvis. 2. Indeterminate left adrenal nodule. Follow-up adrenal protocol CT or MRI could be performed. Date of Exam: 10/13/17 Type of Exam: CT head/brain wo con FINDINGS: Moderate atrophy. Old right frontal and temporal lobe infarcts with encephalomalacia. The ventricles are of normal size, shape, and configuration for the patient's age. There is no evidence of acute intracranial hemorrhage, midline displacement, or mass effect. There are scattered areas of low attenuation in the white matter which most likely represent changes of chronic microvascular ischemia. The CT attenuation of the brain parenchyma is otherwise normal within the cerebellum, brain stem, and cerebral hemispheres. The tympanic cavities and mastoid air cells are free of appreciable disease. There are no definite fractures of the skull base, calvarium, or visualized portion of the midface. Right frontal scalp hematoma. IMPRESSION: No CT evidence of acute traumatic intracranial injury. Date of Exam: 10/13/17 Type of Exam: XR chest 2V FINDINGS: Mild hyperinflation and emphysema without focal consolidation. There is no pleural effusion or pneumothorax. The heart size, mediastinal contours and pulmonary vascularity are within normal limits. There is no significant skeletal abnormality. IMPRESSION: No acute cardiopulmonary disease. History of Present Illness HPI: Mrs. Rivas is a 77-year-old female who underwent endovascular repair of a 6 cm abdominal aortic aneurysm by Dr. Benedict Olmstead on September 27 that [facility]. She was able to ambulate at discharge using a walker but has had progressive decline since she's been home with increasing weakness and at least 2 and possibly 3 falls. Patient reports that she falls getting out of bed. First fall was approximately 2 weeks ago and she injured her left elbow; she fell again personally 2 days ago tripping over an end table by her bed resulting in extensive facial bruising. Oral intake has been poor per history of her son when she was in the emergency room and she has been unable to ambulate independently for at least a week. Patient describes dizziness/vertigo if she tries to sit forward and reports that she has been in bed for most of the past week. Patient denies focal neurological deficits and clearly indicates generalized weakness. She denies blood loss or abdominal pain although she has been nauseated without emesis. She's been constipated and is not aware of any rectal bleeding. In the emergency room she was found to have a hemoglobin of 6.3 , INR > 10, and persistent tachycardia after fluids. CTs of the head and abdomen /pelvis were without acute pathology. Patient is admitted now for management of symptomatic anemia and coagulopathy. For complete details of the H&P refer to that document. Objective Vital signs: Temperature 98.3 F 10/20/17 12:35 Pulse Rate 108 H 10/20/17 12:35 Respiratory Rate 18 10/20/17 12:35 Blood Pressure 125/86 10/20/17 12:35 Pulse Oximetry 96 10/20/17 12:35 Height/Weight/BMI: Height 1.52 m Weight 56.9 kg Body Mass Index 23.1 Hospital Course This is a general summary of the patient's hospital course. For more details refer to the complete medical record. Hospital course: 10/13/17 Mrs. Rivas is admitted with combination of severe symptomatic anemia, falls with extensive bruising, and INR greater than 10. Vitamin K was given in the emergency room and warfarin will be held. Repeat hemoglobin was found to be 4.9. 2 units of packed cells will be transfused overnight. With recent endovascular stent Plavix will need to be continued. By history no blood loss reported beyond recent surgical blood loss and suspected anemia of chronic disease due to underlying renal failure. Last hemoglobin available in the [facility] was 12.3 in January 2016. Hemoccults unlikely to be helpful at present as almost certainly will be positive with INR as high as it is. PPI initiated empirically with Protonix. Continue metoprolol provided systolic blood pressure permits; continue Plavix due to stent. Majority of home medications on hold. 10/14/17 Hgb improved to 8.6 after being transfused 2 units PRBC. LDH to be added to pre-transfusion labs from yesterday to assess for hemolysis. INR still grossly elevated at 8.03 and additional vitamin K has been ordered. Hyponatremia resolved, na 137. Renal function showing improvement with cr 2.2. K 4.6. 10/15/17 Hgb 8.3, s/p 2 units PRBC. Iron level = 29, B12 491. Start ferrous sulfate. INR down to 1.84 after 2nd dose of Vit K was given yesterday. Will resume Coumadin per pharmacy protocol. 10/16/17 Continue Rocephin for UTI - Day #4. Urine growing Klebsiella oxytoca & Enterobacter aerogenes - both Sensitive to ceftriaxone. INR down to 1.47. She had 5 mg vitamin K on 10/14 and 10/15. Will give renal dose Lovenox today. Warfarin per pharm. manager of case is pricing Eliquis and Xarelto as patient would like to switch to NOAC. Will start whichever med is covered. Hgb improving - 8.8. S/p 2U PRBC on 10/13 & 10/14. Continues on ferrous sulfate started 10/16/17. A-fib with RVR the majority of the time. On metoprolol 25mg BID. Observe for now. See if this improves with starting IVF's. Pt with poor PO intake. Start IVF's NS at 100cc/hr, encourage nutritional supplements. 10/17/17 Last day of Rocephin for UTI. INR 3.32. Holding warfarin today. CM checked on NOAC pricing - requires prior auth to determine coverage. Defer change to NOAC to her PCP as by the time the PA is completed, pt will likely no longer be in the hospital. Hgb dropped 8.8-->7.6. Give 1U PRBC's today. 10/18/17 Continue to monitor INR. Supratherapeutic today at 5.13. Pharm holding warfarin. DC Heard Hemoglobin improve to 9.3 this am after receiving 1U pRBC's yesterday. Repeat CBC in am. Wt and fluid balance are up - will decrease IVF's to 50cc/hr. Kidney function continues to improve - creatinine at 1.6. Heart rate has averaged >100 throughout her stay. Increase metoprolol tartrate from 25mgBID to 37.5mg BID. Hold for systolic pressure <100. Home amlodipine and spironolactone remain on hold. BP controlled. Continue to encourage therapies and nutritional supplements. 10/19/17 Hemoglobin has remained stable at 9.1. Telemetry reviewed by myself, remains in atrial fibrillation with rapid ventricular rate 110-140. Beta patricia was increased to 37.5mg BID last evening. Will give a one-time dose of Lopressor 5 grams IV now. May need to consider increasing to 50 milligrams twice a day. Creatinine continues to improve- Today 1.5. Can discontinue IVF. She is concerned as she is not receiving daily warfarin. Discussed that we are following carefully as she has been supratherapeutic, INR today 3.91. Monitor for evidence of urinary retention. Discussed with nursing staff - post void bladder scan. 10/20/17 COUMADIN CONSULT: day 6 Anticoagulation summary of hospitalization. 77 yr old female patient 5'0" 53.8 kg on warfarin for A-Fib Dx: Supratherapeutic INR and UTI Patient had an abdominal aortic aneurysm repair earlier this month. The patient is also on Plavix 75 mg daily. She has Chronic Renal Disease Stage 4. Baseline INR = >10 at admit. Had Vit K 5 mg orally on 10/13 and again on 10/14. Her INR is dropped to 1.84 and then continued to drop even with warfarin dose to 1.47. She is receiving Rocephin for her UTI. The Rocephin can cause her INR to increase. Her home med dose averages out to 2 mg daily. She takes 1.5 mg 5 days a week and 1 mg 2 days per week. Total of 15 mg weekly. DATE INR DOSE 10/15 1.84 3 mg 10/16 1.47 5 mg 10/17 3.32 No dose given 10/18 5.13 no dose given 10/19 3.91 no dose given 10/20 2.53 plan: 1.5 mg INR is back in therapeutic range. will give warfarin 1.5 mg po today. This dose matches patient's home dose. 10/20/17 Clinically doing well. Strength at baseline. INR therapeutic at 2.53 with HGB 8.9. Creatinine 1.5 with potassium 3.9. Medically stable for discharge to home. Encourage low sodium diet. Nutritional supplements 3 times a day. Increase activities as able. Will continue with warfarin at 1mg daily. (would use 1.5mg 2x a week prior to admission). Will need INR recheck in upcoming days. Consider changing to Eliquis or Xarelto at PCP discretion. Can restart Spironolactone. Would hold on Norvasc for now as blood pressure stable without - may need to restart in near future. Increase metoprolol to 50mg BID with meals. Monitor heart rate and blood pressure. Home health arrangements made with [facility]. F/U with Hermes Kothari in 1 week - will need INR and BMP rechecked secondary to medication use. See orders for details. Time spent with patient: discharge greater than 30 minutes Resuscitation Status: Do Not Resuscitate Discharge Plan - Discharge Disposition Discharge Date: 10/20/17 Disposition: 86 Home Health Service *Condition: Stable Reason For Visit (Visit label in EMR): Anemia Hyper Anticoagulation UTI - Discharge Medications *Discharge Medications: New Ascorbic Acid [Vitamin C] 500 mg PO WB #1 bottle Bisacodyl Supp [Dulcolax] 10 mg RECTALLY DAILY PRN suppositor PRN Reason: Constipation Metoprolol Tartrate [Lopressor] 50 mg PO BIDWM #60 tab Peg 3350 238 G Bottle [Miralax] 17 gm PO DAILY PRN #1 bottle PRN Reason: Constipation Senna + Docusate [Senna Plus Tablet] 2 tab PO BID PRN #1 bottle PRN Reason: Constipation Acetaminophen [Tylenol] 650 mg PO QID PRN tab PRN Reason: Discomfort Ferrous Sulfate [Feosol] 324 mg PO WB #1 bottle Continue Tiotropium Br/Olodaterol HCl [Stiolto Respimat Inhal [place]] 2 puff INH DAILY Spironolactone [Aldactone] 25 mg PO DAILY Sodium Bicarbonate [Sodium Bicarbonate] 650 mg PO BID Rosuvastatin [Crestor] 20 mg PO HS Lactobacillus Acidophilus [Probiotic] 1 cap PO PM Calcitriol [Rocaltrol] 0.25 mcg PO TUTHSA LORazepam [Ativan] 0.5 mg PO Q8H PRN PRN Reason: Anxiety Folic Acid [Folate] 1 mg PO DAILY Citalopram [Celexa] 40 mg PO DAILY Cholecalciferol (Vitamin D3) [Vitamin D3] 5,000 unit PO DAILY Clopidogrel [Plavix] 75 mg PO DAILY Discontinued Warfarin [Coumadin] 1.5 mg PO SUMOWETHFR Metoprolol Tartrate [Lopressor] 25 mg PO BIDWM Amlodipine [Norvasc] 5 mg PO DAILY Warfarin [Coumadin] 1 mg PO TUSA - Discharge Packet/Instructions *Diet: Low sodium. Nutritional supplement 3 times a day. *Activity: As tolerated. Walker for assistance. Slow positional changes to minimize dizziness. *Pain Management/Treatment: Tylenol safe for pain. Maximum 3250mg of Tylenol in any 24 hour period of time. *Wound Care: n/a Additional Instructions: Take 1mg of warfarin (Coumadin daily). Continue to have your INR monitored. You may discuss with your primary provider about potenitally changing to Eliquis or Xarelto in place of warfarin. Iron was started during hospitalization due to anemia. You may obtain this over the counter. Use 324 (or 325mg) of ferrous sulfate once a day with breakfast. Do take 500mg of Vitamin C with the Iron. Your bowels were moving slow during hospitalization. We were using Senna Plus 2 tablets twice a day and Miralax 17 grams once a day - you may continue these medications as needed for constipation. Dulcolax suppositories can be helpful as well. Call your primary care provider on SundayOctober 22 to set up follow up appointment for the week of the . *Expected Signs/Symptoms: Inprovement of strenght and functional status. *Notify Physician if: Temp >100.4. Increasing shortness or breath. Chest pressure, pain, or palpitations. Feeling increasingly lightheaded or faint with positional changes. Bleeding that does not stop. Any worrisome symptoms that may arrise. *During Business Hours Contact: Dr Kothari *After Business Hours Contact: Call [facility] and have Dr Kothari contacted. *Pending Lab/Results: No Pending Lab - Referrals/Follow Up *Referrals/Follow Up: Hermes Kothari [Primary Care Provider] - 1 Week (Hospital follow up for signifcant anemia and elevated INR. Will need INR and BMP rechecked secondary to medication use. Consider changing to Eliquis or Xarelto. Home health set up with [email or web address]. ) - Patient Handouts Patient Handouts: Urinary Tract Infection in Women (GEN), Anemia (GEN) - Dismissal Complete Discharge Instructions are:: Complete Physician Narrative - Narrative Physician: Jaycob Linder MD Attestation Narrative: Date: 10/20/17 Time: [id number] I have independently interviewed and examined patient prior to discharge. See my progress note for details. Medically stable for discharge to home.
== END 2017-10-20 14:35 | disposition home health service (06) | DRG 812 ==
LOC: ED 15:58 → SUATTDRO 20:40 → EDHOLD 20:40 → MED 21:08
PROVIDERS: ADMIT Internal Medicine; ATTEND Hospitalist